=== PATIENT | male | born 1960 | race Caucasian/White ===

== ENCOUNTER 2017-02-16 18:24 | Observation (INO) | payer MEDICARE ==
[2017-02-16 18:28] VITALS: BP 146/73; PULSE 103; RESP 18; TEMP 98.3; O2SAT 99
--- NOTE | 2017-02-16 19:05 | PD ---
HPI Chief Complaint: Edema Time Seen by Provider: 19:00 Travel History International Travel<30 days: No Contact w/Intl Traveler<30days: No Traveled to known affect area: No History of Present Illness HPI 56-year-old male that presents to the ED via ambulance for evaluation of lower leg edema bilaterally. Right worse than left. No injuries. Per patient she's had this for almost a month now. [place] the area. He states that the right leg continues to get red and swollen. He does have a history of DVT to the leg which require surgery. He also has a history multiple surgeries to the leg as well. States that he has epigastric abdominal pain as well. Per patient for the past week his been having black stools. He denies any chest pain or shortness of breath and a history of heart disease. He does have a history of CHF per patient. Per patient he states there eyes but has not used them in a while as he has no healthcare in the area. No nausea or vomiting. No falls or injuries. Allergies to Benadryl, penicillin, vancomycin. Per patient the pain is 5 out of 10. PFSH Past Medical History Cardiovascular Problems: Yes Congestive Heart Failure: Yes Diabetes: Yes Patient Takes Glucophage: No Deep Vein Thrombosis: Yes GERD: Yes Hypertension: Yes Past Surgical History Abdominal Surgery: Yes Other Surgery: Yes (VASCULAR SX TO R LEG) Social History Alcohol Use: No (DENIES) Tobacco Use: No Substance Use: No (DENIES) Allergies-Medications (Allergen,Severity, Reaction): Coded Allergies: Benadryl (Verified Allergy, Unknown, 02/16/17) Penicillin (Verified Allergy, Unknown, 02/16/17) Vancomycin (Verified Allergy, Unknown, 02/16/17) Reported Meds & Prescriptions Reported Meds & Active Scripts Active Reported Ibuprofen 200 Mg Tab 2,000 Mg PO Q6H PRN Nexium (Esomeprazole DR) 40 Mg Capdr 40 Mg PO BID Review of Systems Except as stated in HPI: all other systems reviewed are Neg Physical Exam Narrative GENERAL: SKIN: Warm and dry. Patient has multiple surgical scars more noted on the right leg as well as on the abdomen. No sign of infection. Right leg does appear to be more edematous compared to the left is slightly tender. HEAD: Atraumatic. Normocephalic. EYES: Pupils equal and round 4 mm right and accommodation. No scleral icterus. No injection or drainage. ENT: No nasal bleeding or discharge. Mucous membranes pink and moist. Tongue is midline. No uvula deviation. NECK: Trachea midline. No JVD. CARDIOVASCULAR: Regular rate and rhythm. No murmurs, S3, S4. RESPIRATORY: No accessory muscle use. Clear to auscultation. Breath sounds equal bilaterally. GASTROINTESTINAL: Abdomen soft, non-tender, nondistended. Hepatic and splenic margins not palpable. MUSCULOSKELETAL: Extremities without clubbing, cyanosis, or edema. No obvious deformities. Full range of motion of the upper and lower extremities bilaterally. 2+ pulses bilaterally. No lumbar, thoracic, cervical spine tenderness to palpation. There are 2+ pitting edema on bilateral legs but right worse than left NEUROLOGICAL: Awake and alert. No obvious cranial nerve deficits. Motor grossly within normal limits. Five out of 5 muscle strength in the arms and legs. Normal speech. PSYCHIATRIC: Appropriate mood and affect; insight and judgment normal. Data Data Last Documented VS Vital Signs Date Time Temp Pulse Resp B/P Pulse Ox O2 Delivery O2 Flow Rate FiO2 02/16/17 18:53 Room Air 02/16/17 18:28 98.3 103 18 146/73 99 Orders Electrocardiogram (02/16/17 18:38) Complete Blood Count With Diff (02/16/17 18:38) Comprehensive Metabolic Panel (02/16/17 18:38) Troponin I (02/16/17 18:38) B-Type Natriuretic Peptide (02/16/17 18:38) Prothrombin Time / Inr (Pt) (02/16/17 18:38) Act Partial Throm Time (Ptt) (02/16/17 18:38) Lipase (02/16/17 18:38) Urinalysis - C+S If Indicated (02/16/17 18:38) Magnesium (Mg) (02/16/17 18:38) Chest, Single Ap (02/16/17 18:38) Iv Access Insert/Monitor (02/16/17 18:38) Ecg Monitoring (02/16/17 18:38) Oximetry (02/16/17 18:38) Us Leg Venous Doppler (02/16/17 ) Morphine Inj (Morphine Inj) (02/16/17 19:45) Ondansetron Inj (Zofran Inj) (02/16/17 19:45) Ankle, Complete ([id number]) (02/16/17 ) Clindamycin Inj (Cleocin Inj) (02/16/17 20:00) Sodium Chlor 0.9% 1000 Ml Inj (Ns 1000 M (02/16/17 19:52) Ketorolac Inj (Toradol Inj) (02/16/17 20:00) Admit Order (Ed Use Only) (02/16/17 20:17) Labs Laboratory Tests Test 02/16/17 18:35 White Blood Count 3.8 TH/MM3 Red Blood Count 3.41 MIL/MM3 Hemoglobin 10.0 GM/DL Hematocrit 30.0 % Mean Corpuscular Volume 87.9 FL Mean Corpuscular Hemoglobin 29.3 PG Mean Corpuscular Hemoglobin 33.3 % Concent Red Cell Distribution Width 16.7 % Platelet Count 72 TH/MM3 Mean Platelet Volume 10.0 FL Neutrophils (%) (Auto) 72.2 % Lymphocytes (%) (Auto) 15.5 % Monocytes (%) (Auto) 10.7 % Eosinophils (%) (Auto) 1.1 % Basophils (%) (Auto) 0.5 % Neutrophils # (Auto) 2.8 TH/MM3 Lymphocytes # (Auto) 0.6 TH/MM3 Monocytes # (Auto) 0.4 TH/MM3 Eosinophils # (Auto) 0.0 TH/MM3 Basophils # (Auto) 0.0 TH/MM3 CBC Comment AUTO DIFF Differential Comment AUTO DIFF CONFIRMED Platelet Estimate LOW Platelet Morphology Comment NORMAL Prothrombin Time 10.8 SEC Prothromb Time International 1.0 RATIO Ratio Activated Partial 25.3 SEC Thromboplast Time Sodium Level 139 MEQ/L Potassium Level 4.2 MEQ/L Chloride Level 113 MEQ/L Carbon Dioxide Level 16.5 MEQ/L Anion Gap 10 MEQ/L Blood Urea Nitrogen 26 MG/DL Creatinine 1.04 MG/DL Estimat Glomerular Filtration 74 ML/MIN Rate Random Glucose 177 MG/DL Calcium Level 8.6 MG/DL Magnesium Level 1.9 MG/DL Total Bilirubin 0.4 MG/DL Aspartate Amino Transf 44 U/L (AST/SGOT) Alanine Aminotransferase 35 U/L (ALT/SGPT) Alkaline Phosphatase 204 U/L Troponin I LESS THAN 0.02 NG/ML B-Type Natriuretic Peptide 64 PG/ML Total Protein 7.1 GM/DL Albumin 3.1 GM/DL Lipase 655 U/L MDM Medical Decision Making Medical Screen Exam Complete: Yes Emergency Medical Condition: Yes Medical Record Reviewed: Yes Interpretation(s) CBC & BMP Diagram 02/16/17 18:35 Last Impressions Chest X-Ray 02/16/17 1838 Signed Impressions: Service Date/Time: February 18:39 - CONCLUSION: No acute disease. Dhruv Cano MD FACR Lower Extremity Ultrasound 02/16/17 0000 Signed Impressions: Service Date/Time: February 19:01 - CONCLUSION: Limited but negative exam. Dhruv Cano MD FACR LFTS WNL Lipase slightly elevated in the 600s troponin negative CK slightly elevated BNP negative Differential Diagnosis DVT versus CHF versus cellulitis versus epigastric pain versus GI bleed Narrative Course 56-year-old male that presents to the ED for evaluation of lower leg edema as well as black stools. Patient was properly examined and was found to have signs and symptoms of unclear etiology. Concern for DVT as well as CHF. Patient was told that he will benefit from rectal exam to make sure patient doesn't have blood on his stool secondary to the black stools but he declines. He understands that without this test I'm not able to really see if he is bleeding internally. I did ask and multiple times that he needs to give us a sample of his stool and we do not have to do this test. He agrees with this. Labs and imaging ordered. Labs and imaging for almost per were unremarkable other than for dehydration as well as mild pancreatitis. No sign of ischemia. Case was discussed in my attending Dr. Espinosa who evaluated the patient and agrees with plan. At this time patient appears to have cellulitis to his right leg. Unclear etiology. Recommendation this time is for admission. Patient has not been able to give us a sample of his stool. Patient's hemoglobin was slightly low. Patient was told that he needs a rectal exam but declines. Patient will be admitted for eval of cellulitis and recheck of H/H. Case discussed with Dr Cuello who agrees to admission. Diagnosis Primary Impression: Cellulitis Qualified Code: L03.115 - Cellulitis of right lower extremity Additional Impressions: Dehydration GI bleed Qualified Code: K92.2 - Gastrointestinal hemorrhage, unspecified gastrointestinal hemorrhage type Admitting Information Admitting Physician Requests: Guillermo Brut Feb 16, 2017 19:05
--- NOTE | 2017-02-16 19:05 | RADRPT ---
EXAM DATE/TIME: 02/16/2017 18:39 [facility] COMPARISON: No previous studies available for comparison. INDICATIONS : Short of breath, bilateral lower leg swelling. MEDICAL HISTORY : Congestive heart failure. Hypertension Diabetes mellitus type II. DVT SURGICAL HISTORY : vascular sx to rt leg, lung surgery for infection ENCOUNTER: Initial ACUITY: 2 days PAIN SCORE: 0/10 LOCATION: Bilateral chest FINDINGS: A single view of the chest demonstrates the lungs to be symmetrically aerated without evidence of mas s, infiltrate or effusion. The cardiomediastinal contours are unremarkable. Osseous structures are intact. CONCLUSION: No acute disease. Dhruv Cano MD FACR on February 16, 2017 at 19:04 Board Certified Radiologist. This report was verified electronically.
[2017-02-16 19:06] LABS: AUTOMATED NEUTROPHIL # 2.8 TH/MM3 (1.8-7.7); BASOPHIL % 0.5 % (0.0-2.0); EOSINOPHIL % 1.1 % (0.0-4.0); LYMPH % 15.5 % (9.0-44.0); LYMPHOCYTE # 0.6 TH/MM3 (1.0-4.8); MEAN CELL VOLUME 87.9 FL (80.0-100.0); MEAN CORPUSCULAR HEMOGLOBIN 29.3 PG (27.0-34.0); MEAN CORPUSCULAR HGB CONC 33.3 % (32.0-36.0); MONO % 10.7 % (0.0-8.0); NEUT % 72.2 % (16.0-70.0); PLATELET COUNT 72 TH/MM3 (150-450); RED BLOOD COUNT 3.41 MIL/MM3 (4.50-5.90); RED CELL DISTRIBUTION WIDTH 16.7 % (11.6-17.2); WHITE BLOOD COUNT 3.8 TH/MM3 (4.0-11.0)
[2017-02-16 19:08] LABS: HEMO FLAGS AUTO DIFF
[2017-02-16] MEDS ORDERED: NEXI40CA PO (19:09)
[2017-02-16] MEDS ORDERED: IBUP200T2 PO (19:09)
[2017-02-16 19:21] LABS: APTT (PATIENT) 25.3 SEC (24.3-30.1); PROTHROMBIN TIME - PATIENT 10.8 SEC (9.8-11.6)
[2017-02-16 19:23] LABS: ALT (GPT) 35 U/L (12-78)
[2017-02-16 19:27] LABS: ALKALINE PHOSPHATASE 204 U/L (45-117); TOTAL BILIRUBIN ADULT 0.4 MG/DL (0.2-1.0)
[2017-02-16 19:31] LABS: ANION GAP 10 MEQ/L (5-15); AST (GOT) 44 U/L (15-37); BICARBONATE 16.5 MEQ/L (21.0-32.0); BLOOD UREA NITROGEN 26 MG/DL (7-18); CHLORIDE 113 MEQ/L (98-107); GLOMERULAR FILTRATION RATE 74 ML/MIN (>89); MAGNESIUM 1.9 MG/DL (1.5-2.5); POTASSIUM 4.2 MEQ/L (3.5-5.1); SODIUM (NA) 139 MEQ/L (136-145)
[2017-02-16] MEDS ORDERED: MORPHINE SULFATE 4 MG/ML INJ IV PUSH ONE (19:45)
[2017-02-16] MEDS ORDERED: ONDANSETRON HCL 4 MG/2 ML VIAL IV PUSH ONE (19:45)
--- NOTE | 2017-02-16 19:47 | RADRPT ---
EXAM DATE/TIME: 02/16/2017 19:01 [facility] COMPARISON: No previous studies available for comparison. INDICATIONS : Right leg pain/swelling. Limited exam of the upper extremities because patient would not be stroke. MEDICAL HISTORY : Congestive heart failure. Hypertension. Gastroesophageal reflux disease. Cardiac disorders. Deep v ein thrombosis. Diabetes. SURGICAL HISTORY : Vascular surgery to right leg. Abdominal surgery, unspecified. ENCOUNTER: Initial ACUITY: 1 month PAIN SCORE: 1/10 LOCATION: Right leg. TECHNIQUE: Venous ultrasound of the leg was performed from the inguinal ligament to the proximal calf. Real-she e, color Doppler and spectral tracing, compression and augmentation techniques were used. FINDINGS: There is normal compressibility of the deep venous system from the inguinal region to the proximal ca lf. No echogenic clot is seen in the lumen of the common femoral, femoral, popliteal, and posterior tibial veins. There is a normal response of the venous system to proximal and distal augmentation an d respiration. CONCLUSION: Limited but negative exam. Dhruv Cano MD FACR on February 16, 2017 at 19:45 Board Certified Radiologist. This report was verified electronically.
[2017-02-16] MEDS ORDERED: SODIUM CHLOR 0.9% 1000 ML INJ 1,000 ML IV SCH (19:52)
[2017-02-16] MEDS ORDERED: CLINDAMYCIN INJ 600 MG in SODIUM CHLORIDE 0.9% INJ 100 ML IV ONE (20:00)
[2017-02-16] MEDS ORDERED: KETOROLAC TROMETHAMINE 30 MG/ML (IVP) VIAL IV PUSH ONE (20:00)
--- NOTE | 2017-02-16 20:08 | RADRPT ---
EXAM DATE/TIME: 02/16/2017 19:41 [facility] COMPARISON: No previous studies available for comparison. INDICATIONS : Edema in right ankle. MEDICAL HISTORY : None. SURGICAL HISTORY : None. ENCOUNTER: Initial ACUITY: 4 - 6 days PAIN SCORE: 6/10 LOCATION: Right whole ankle FINDINGS: There is generalized soft tissue swelling without fracture.. Minimal plantar spurring is evident. CONCLUSION: Soft tissue swelling without fracture. Dhruv Cano MD FACR on February 16, 2017 at 20:07 Board Certified Radiologist. This report was verified electronically.
[2017-02-16 20:19] LABS: PLATELET ESTIMATE SMEAR LOW (NORMAL); PLATELET MORPHOLOGY NORMAL (NORMAL); SCAN/DIFF AUTO DIFF CONFIRMED
[2017-02-16] MEDS ORDERED: SODIUM CHLORIDE 0.9% FLUSH 10 ML FLUSH IV FLUSH PRN (20:30)
[2017-02-16] MEDS ORDERED: NALOXONE HCL 0.4 MG/ML AMP IV PRN (20:30)
[2017-02-16] MEDS: SODIUM CHLORIDE 0.9% FLUSH 10 ML FLUSH IV FLUSH SCH (21:05)
[2017-02-16 21:30] VITALS: BP 159/78
[2017-02-16 21:55] VITALS: BP 132/65; PULSE 80; RESP 16; TEMP 97.7; O2SAT 98
[2017-02-16 21:56] LABS: BLOOD, URINE NEG (NEG); GLUCOSE,URINE NEG (NEG); KETONE, URINE NEG (NEG); NITRITE,URINE NEG (NEG); PH, URINE 6.5 (5.0-8.5); URINE COLOR YELLOW (YELLW/STRAW)
[2017-02-16 22:05] LABS: COMMENT (UR) CULT NOT INDICATED; CULTURE IF INDICATED CULT NOT INDICATED
[2017-02-16 23:13] VITALS: BP 136/76; PULSE 77; RESP 17; TEMP 98.3; O2SAT 99
[2017-02-17] MEDS: CLINDAMYCIN INJ 900 MG in SODIUM CHLORIDE 0.9% INJ 100 ML IV SCH ×4 (03:32→23:24)
[2017-02-17 03:40] VITALS: BP 163/84; PULSE 86; RESP 18; TEMP 97.8; O2SAT 98
[2017-02-17 06:33] LABS: AUTOMATED NEUTROPHIL # 1.9 TH/MM3 (1.8-7.7); BASOPHIL % 0.6 % (0.0-2.0); EOSINOPHIL # 0.1 TH/MM3 (0-0.4); EOSINOPHIL % 2.6 % (0.0-4.0); HEMATOCRIT 29.9 % (39.0-51.0); LYMPH % 22.2 % (9.0-44.0); LYMPHOCYTE # 0.7 TH/MM3 (1.0-4.8); MEAN CELL VOLUME 87.3 FL (80.0-100.0); MEAN CORPUSCULAR HEMOGLOBIN 29.8 PG (27.0-34.0); MEAN CORPUSCULAR HGB CONC 34.1 % (32.0-36.0); MONO % 10.8 % (0.0-8.0); NEUT % 63.8 % (16.0-70.0); PLATELET COUNT 67 TH/MM3 (150-450); RED BLOOD COUNT 3.42 MIL/MM3 (4.50-5.90); RED CELL DISTRIBUTION WIDTH 16.2 % (11.6-17.2)
[2017-02-17 06:34] LABS: HEMO FLAGS DIFF FINAL
[2017-02-17 06:57] LABS: BICARBONATE 19.5 MEQ/L (21.0-32.0); POTASSIUM 3.8 MEQ/L (3.5-5.1)
[2017-02-17 07:37] VITALS: BP 129/63; PULSE 76; RESP 18; TEMP 97.7; O2SAT 97
[2017-02-17] MEDS: SODIUM CHLORIDE 0.9% FLUSH 10 ML FLUSH IV FLUSH SCH ×2 (10:19→23:23)
[2017-02-17 12:30] VITALS: BP 134/75; PULSE 80; RESP 16; TEMP 98; O2SAT 98
[2017-02-17] MEDS ORDERED: DEXTROSE 50% IN WATER 50 ML VIAL(D50) IV PRN (14:15)
[2017-02-17] MEDS ORDERED: ACETAMINOPHEN 500 MG CPLT PO PRN (14:15)
[2017-02-17] MEDS ORDERED: GLUCAGON 1 MG/ML VIAL OTHER PRN (14:15)
--- NOTE | 2017-02-17 14:19 | HHI.HP ---
[facility] No Primary Care Physician Admission Diagnosis right leg cellulitis, dehydration Diagnoses: Chief Complaint: Right lower extremity swelling Travel History International Travel<30 Days: No Contact w/Intl Traveler <30 Da: No Traveled to Known Affected Are: No History of Present Illness Written by Charles Price, acting as scribe for Dr. Alba on 02/17/17 at 13:12. 56-year-old male with a past medical history of GERD, DM with neuropathy, HTN, CHF who presented for bilateral lower extremity swelling and right leg redness. Patient states he's been having swelling of his legs for the past 4 days. The right leg is more swollen than the left and more red. The patient has burning pain in his thirst remedies, but attributes this to diabetic neuropathy. He spent out of his insulin for the past 4 days. He is also had associated nausea and vomiting for the past 4 days. He states that normally when he is swelling of his legs, he is able to remedy the swelling with elevating his legs, but that did not help this time. He said shortness of breath since he moved to [place] 8 months ago, unchanged. He denies any fevers , chills, diarrhea, chest pain. He did have an admission about 3 months ago for MRSA infection of his right leg that required surgery. He did have a postoperative hematoma in his right groin, denies any blood clots and was never placed on blood thinners. Review of Systems Except as stated in HPI: all other systems reviewed are Neg Past Family Social History Past Medical History GERD Diabetes mellitus with neuropathy Hypertension, has been out of lisinopril for several months Reported history of CHF, denies ever being on diuretics chronically Past Surgical History Right leg surgery for infection 3 months ago Left wrist laceration repair Stomach surgery (Melissa fundoplication?) Lung surgery for infection Reported Medications Reported Ibuprofen 200 Mg Tab 2,000 Mg PO Q6H PRN Nexium (Esomeprazole DR) 40 Mg Capdr 40 Mg PO BID Patient also reports that he was on Humalog 11 units 3 times a day with meals and Levemir 25 units twice daily until he ran out 4 days ago Allergies: Coded Allergies: Penicillin (Verified Allergy, Severe, 02/17/17) ANAPHYLACTIC REACTION Benadryl (Verified Allergy, Unknown, 02/16/17) Vancomycin (Verified Allergy, Unknown, 02/16/17) Active Ordered Medications Current Medications Medications (Trade) Dose Ordered Sig/Ruthy Route Start Time Stop Time Status Last Admin (NS Flush) 2 ml UNSCH PRN IV FLUSH 02/16/17 20:30 02/17/17 03:31 (NS Flush) 2 ml BID IV FLUSH 02/16/17 21:00 02/17/17 10:19 Naloxone HCl 0.4 mg 0.4 mg UNSCH PRN IV 02/16/17 20:30 Clindamycin Phosphate 900 mg/ Sodium Chloride 106 ml @ 212 mls/hr Q6H IV 02/17/17 03:00 02/17/17 10:19 (Zosyn 3.375 Gm Premix) 50 ml @ 100 mls/hr Q6H IV 02/17/17 14:15 UNV (Lasix) 20 mg BID@09,18 PO 02/17/17 14:15 UNV (D50w (Vial) Inj) 50 ml UNSCH PRN IV 02/17/17 14:15 UNV (Glucagon Inj) 1 mg UNSCH PRN OTHER 02/17/17 14:15 UNV (Tylenol) 1,000 mg Q6H PRN PO 02/17/17 14:15 UNV Family History Father was an alcoholic and of a heart attack at age 88 Mother is alive in a fdc, had heart bypass in her 50s Social History Denies any alcohol, tobacco, or drug use Currently living with friends Physical Exam Vital Signs Vital Signs Date Time Temp Pulse Resp B/P Pulse Ox O2 Delivery O2 Flow Rate FiO2 02/17/17 12:30 98.0 80 16 134/75 98 02/17/17 07:37 97.7 76 18 129/63 97 02/17/17 03:40 97.8 86 18 163/84 98 02/16/17 23:13 98.3 77 17 136/76 99 02/16/17 21:55 97.7 80 16 132/65 98 02/16/17 21:30 78 14 159/78 97 02/16/17 18:53 Room Air 02/16/17 18:28 98.3 103 18 146/73 99 Physical Exam GENERAL: Well-developed well-nourished. In no acute distress. SKIN: Warm and dry. Mild erythema of the right anterior shaikh. Well-healed surgical incisions on the right thigh and groin. HEENT: Normocephalic. Pupils equal and round. Mucous membranes pink and moist. CARDIOVASCULAR: Regular rate and rhythm. No murmur appreciated. RESPIRATORY: No accessory muscle use. Clear to auscultation. Breath sounds equal bilaterally. GASTROINTESTINAL: Abdomen soft, non-tender, nondistended. Bowel sounds x4. MUSCULOSKELETAL: Right lower extremity edema 2+, left lower showing edema 1+. DP pulses 2+ bilaterally. No clubbing or cyanosis. NEUROLOGICAL: Awake and alert. No focal neurological deficits. Moves upper and lower extremities spontaneously. Normal speech. PSYCHIATRIC: Appropriate mood and affect; insight and judgment normal. Laboratory Laboratory Tests Test 02/16/17 02/16/17 02/17/17 02/17/17 18:35 21:37 06:05 06:15 White Blood Count 3.8 3.0 Red Blood Count 3.41 3.42 Hemoglobin 10.0 10.2 Hematocrit 30.0 29.9 Mean Corpuscular Volume 87.9 87.3 Mean Corpuscular Hemoglobin 29.3 29.8 Mean Corpuscular Hemoglobin 33.3 34.1 Concent Red Cell Distribution Width 16.7 16.2 Platelet Count 72 67 Mean Platelet Volume 10.0 9.9 Neutrophils (%) (Auto) 72.2 63.8 Lymphocytes (%) (Auto) 15.5 22.2 Monocytes (%) (Auto) 10.7 10.8 Eosinophils (%) (Auto) 1.1 2.6 Basophils (%) (Auto) 0.5 0.6 Neutrophils # (Auto) 2.8 1.9 Lymphocytes # (Auto) 0.6 0.7 Monocytes # (Auto) 0.4 0.3 Eosinophils # (Auto) 0.0 0.1 Basophils # (Auto) 0.0 0.0 CBC Comment AUTO DIFF DIFF FINAL Differential Comment AUTO DIFF CONFIRMED Platelet Estimate LOW Platelet Morphology Comment NORMAL Prothrombin Time 10.8 Prothromb Time International 1.0 Ratio Activated Partial 25.3 Thromboplast Time Sodium Level 139 143 Potassium Level 4.2 3.8 Chloride Level 113 113 Carbon Dioxide Level 16.5 19.5 Anion Gap 10 11 Blood Urea Nitrogen 26 22 Creatinine 1.04 0.97 Estimat Glomerular Filtration 74 80 Rate Random Glucose 177 122 Calcium Level 8.6 8.2 Magnesium Level 1.9 Total Bilirubin 0.4 Aspartate Amino Transf 44 (AST/SGOT) Alanine Aminotransferase 35 (ALT/SGPT) Alkaline Phosphatase 204 Troponin I LESS THAN 0.02 B-Type Natriuretic Peptide 64 Total Protein 7.1 Albumin 3.1 Lipase 655 Urine Color YELLOW Urine Turbidity CLEAR Urine pH 6.5 Urine Specific [place] 1.018 Urine Protein 30 Urine Glucose (UA) NEG Urine Ketones NEG Urine Occult Blood NEG Urine Nitrite NEG Urine Bilirubin NEG Urine Urobilinogen LESS THAN 2.0 Urine Leukocyte Esterase NEG Urine RBC 1 Urine WBC LESS THAN 1 Microscopic Urinalysis Comment CULT NOT INDICATED Result Diagram: 02/17/1760402/17/17 0615 Imaging Last Impressions Chest X-Ray 02/16/17 1838 Signed Impressions: Service Date/Time: February 18:39 - CONCLUSION: No acute disease. Dhruv Cano MD FACR Lower Extremity Ultrasound 02/16/17 0000 Signed Impressions: Service Date/Time: , February 16, 2017 19:01 - CONCLUSION: Limited but negative exam. Dhruv Cano MD FACR Ankle X-Ray 02/16/17 0000 Signed Impressions: Service Date/Time: , February 16, 2017 19:41 - CONCLUSION: Soft tissue swelling without fracture. Dhruv Cano MD FACR Assessment and Plan Assessment and Plan 56-year-old male with a past medical history of GERD, DM with neuropathy, HTN, CHF who presented for bilateral lower extremity swelling and right leg redness Right lower extremity cellulitis: Reviewed: Ultrasound negative for DVT. Ankle x-ray with soft tissue swelling. Afebrile with no leukocytosis. -Minimal improvement on IV clindamycin overnight. Add cefepime. -Patient does not want narcotics for pain, avoid NSAIDs with swelling, Tylenol as needed Bilateral lower extremity swelling: Likely secondary to cirrhosis. Reviewed: Liver ultrasound with signs suggestive of cirrhosis. BNP 64. Chest x -ray clear. -Oral Lasix Diabetes mellitus: Not well controlled secondary to noncompliance. -Monitor Accu-Cheks. SSI coverage. -Consider adding back basal insulin -Check hemoglobin A1c GERD: No abdominal pain. -Continue PPI Dark stools: Reported in the ED. -Check stool Hemoccult to rule out GI bleed DVT prophylaxis: Avoid mechanical prophylaxis for now with infection and lower extremity edema. Avoid chemical prophylaxis with questionable GI bleeding. Discussed Condition With Patient Attending Statement This note was transcribed by [email or web address] [Charles Price]. I, Dr. Jarrett Alba personally performed the history, physical exam, and medical decision making; and confirmed the accuracy of the information in the transcribed note. Authenticated by Dr. Jarrett Alba on 02/20/17 at 00:42. Charles Price Feb 17, 2017 14:19 Jarrett Alba MD Feb 20, 2017 00:42
--- NOTE | 2017-02-17 14:24 | EKG ---
Date Performed: 02/16/2017 Time Performed: 19:24:20 PTAGE: 56 years EKG: Sinus rhythm NORMAL ECG NO PREVIOUS TRACING DOCTOR: Jose Alberto Crockett Interpretating Date/Time 02/17/2017 14:23:06
[2017-02-17] MEDS ORDERED: CEFEPIME INJ 2,000 MG in SODIUM CHLORIDE 0.9% INJ 100 ML IV SCH (14:45)
--- NOTE | 2017-02-17 14:46 | RADRPT ---
EXAM DATE/TIME: 02/17/2017 13:24 [facility] COMPARISON: No previous studies available for comparison. INDICATIONS : Increased lab values. MEDICAL HISTORY : Congestive heart failure. Hypertension. Deep venous thrombosis. COPD. GERD. Diabetes. SURGICAL HISTORY : Vascular surgery to right leg. Blood transfusions. ENCOUNTER: Initial ACUITY: 1 day PAIN SCORE: 0/10 LOCATION: Bilateral upper quadrant MEASUREMENTS: LIVER: 20.4 cm length COMMON DUCT: 5 mm RIGHT KIDNEY: 12.1 x 6.8 x 5.7 cm SPLEEN: 14.3 cm length FINDINGS: LIVER: Coarsened echotexture with nodular contour. No focal lesion is identified. Main portal vein is patent with hepatopedal blood flow. COMMON DUCT: No intraluminal mass or stone visualized. GALLBLADDER: Gallbladder is only partially distended. There is mild wall thickening and trace pericholecystic flui d. Sonographic Campos's sign is negative. There are no stones. PANCREAS: The visualized portions are within normal limits. RIGHT KIDNEY: No hydronephrosis, stone or mass. SPLEEN: No focal lesion. CONCLUSION: 1. Mild hepatomegaly with a nodular contour and coarsened echotexture. Findings are suggestive of cir rhosis. 2. Mild splenomegaly. Although nonspecific, this could be related to portal hypertension. 3. The mild gallbladder wall thickening is likely related to underdistention. Hernan Sanches MD on February 17, 2017 at 14:42 Board Certified Radiologist. This report was verified electronically.
[2017-02-17] MEDS ORDERED: PIPERACIL-TAZO 3.375 GM PREMIX 50 ML IV SCH (15:00)
[2017-02-17] MEDS: FUROSEMIDE 20 MG TAB PO SCH ×2 (15:39→18:19)
[2017-02-17] MEDS: INSULIN ASPART SUPPLEMENTAL SCALE SQ SCH ×2 (16:00→21:00)
[2017-02-17] MEDS ORDERED: LEVOFLOXACIN 750 MG PREMIX INJ 150 ML IV SCH (17:00)
[2017-02-17 17:11] LABS: HEMOGLOBIN A1a 1.2 %; HEMOGLOBIN A1b 0.7 %; HEMOGLOBIN Ao 84.4 %; HEMOGLOBIN F 1.1 %; HEMOGLOBIN LA1C 1.8 %; HEMOGLOBIN P3 3.7 %
[2017-02-17 20:06] VITALS: PULSE 83
[2017-02-17 20:16] VITALS: BP 120/63; PULSE 89; RESP 18; TEMP 98.3; O2SAT 98
[2017-02-17 23:44] VITALS: BP 154/70; PULSE 82; RESP 20; TEMP 98; O2SAT 99
[2017-02-18 01:34] VITALS: PULSE 74
[2017-02-18] MEDS: CLINDAMYCIN INJ 900 MG in SODIUM CHLORIDE 0.9% INJ 100 ML IV SCH (03:00)
[2017-02-18 03:55] VITALS: PULSE 69
[2017-02-18 04:00] VITALS: BP 112/56; PULSE 75; RESP 16; TEMP 97.5; O2SAT 99
[2017-02-18] MEDS ORDERED: HUMALOG SQ ×2 (04:15→09:31)
[2017-02-18] MEDS ORDERED: hydrOXYzine HCL 50 MG TAB PO ONE (04:30)
[2017-02-18] MEDS: INSULIN ASPART SUPPLEMENTAL SCALE SQ SCH (06:06)
[2017-02-18] MEDS ORDERED: LYRICA (07:10)
[2017-02-18] MEDS ORDERED: LIS (07:10)
[2017-02-18] MEDS ORDERED: [UNRECOGNIZED DRUG - OTHER] (07:10)
[2017-02-18] MEDS ORDERED: LISIPOW (07:12)
[2017-02-18] MEDS ORDERED: LEVEMIR (07:12)
[2017-02-18 08:48] VITALS: BP 132/68; PULSE 73; RESP 18; TEMP 96.8; O2SAT 98
--- NOTE | 2017-02-18 09:27 | HHI.PR ---
Subjective Remarks Follow-up for lower extremity cellulitis. Right leg erythema has improved today. The patient continues to complain of burning pain in his lower extremities. States he was previously on Lyrica for neuropathy and is happy to have that restarted. He states that after receiving clindamycin last night around midnight he did have some itching that was relieved by hydroxyzine. He denies any problems breathing or rash. Denies any fevers or chills. He does not recall what he was on previously for MRSA. Objective Vitals Vital Signs Date Time Temp Pulse Resp B/P Pulse Ox O2 Delivery O2 Flow Rate FiO2 02/18/17 08:48 96.8 73 18 132/68 98 02/18/17 04:00 97.5 75 16 112/56 99 02/18/17 03:55 69 02/18/17 01:34 74 02/17/17 23:44 98.0 82 20 154/70 99 02/17/17 20:16 98.3 89 18 120/63 98 02/17/17 20:06 83 02/17/17 12:30 98.0 80 16 134/75 98 Result Diagram: 02/17/17 0605 02/17/17 0615 Imaging Last Impressions Liver Ultrasound 02/17/17 0000 Signed Impressions: Service Date/Time: Friday, February 17, 2017 13:24 - CONCLUSION: 1. Mild hepatomegaly with a nodular contour and coarsened echotexture. Findings are suggestive of cirrhosis. 2. Mild splenomegaly. Although nonspecific, this could be related to portal hypertension. 3. The mild gallbladder wall thickening is likely related to underdistention. Hernan Sanches MD Chest X-Ray 02/16/17 1838 Signed Impressions: Service Date/Time: February 18:39 - CONCLUSION: No acute disease. Dhruv Cano MD FACR Lower Extremity Ultrasound 02/16/17 0000 Signed Impressions: Service Date/Time: February 19:01 - CONCLUSION: Limited but negative exam. Dhruv Cano MD FACR Ankle X-Ray 02/16/17 0000 Signed Impressions: Service Date/Time: February 19:41 - CONCLUSION: Soft tissue swelling without fracture. Dhruv Cano MD FACR Objective Remarks GENERAL: Well-developed well-nourished. In no acute distress. SKIN: Warm and dry. Improvement/resolution in right lower extremity erythema. Well-healed surgical incisions on the right thigh and groin. HEENT: Normocephalic. Pupils equal and round. Mucous membranes pink and moist. CARDIOVASCULAR: Regular rate and rhythm. No murmur appreciated. RESPIRATORY: No accessory muscle use. Clear to auscultation. Breath sounds equal bilaterally. GASTROINTESTINAL: Abdomen soft, non-tender, nondistended. Bowel sounds x4. MUSCULOSKELETAL: Improvement of right lower extremity cellulitis. No clubbing or cyanosis. 1+ on the right and trace on the left lower extremity edema. NEUROLOGICAL: Awake and alert. No focal neurological deficits. Moves upper and lower extremities spontaneously. Normal speech. PSYCHIATRIC: Appropriate mood and affect; insight and judgment normal. A/P Assessment and Plan 56-year-old male with a past medical history of GERD, DM with neuropathy, HTN, CHF who presented for bilateral lower extremity swelling and right leg redness Right lower extremity cellulitis: Improved on IV clindamycin and IV Levaquin. The patient states that clindamycin causes itching, no respiratory complaints. The patient reports anaphylactic reaction to penicillin in the past. Reviewed: Ultrasound negative for DVT. Ankle x-ray with soft tissue swelling. Afebrile with no leukocytosis. -Change clindamycin to Bactrim. Continue Levaquin. Hydroxyzine prn for itching. -Patient does not want narcotics for pain, avoid NSAIDs with swelling, Tylenol as needed Bilateral lower extremity swelling: Likely secondary to cirrhosis. Reviewed: Liver ultrasound with signs suggestive of cirrhosis. BNP 64. Chest x -ray clear. -Limited course of oral Lasix Diabetes mellitus: Not well controlled secondary to noncompliance. Better controlled overnight. Hemoglobin A1c 6.9. -Monitor Accu-Cheks. SSI coverage. -Resume previous insulin regimen at [place] Lower extremity neuropathy: Patient reports a chronic history of diabetic neuropathy, has been off Lyrica for several months. -Resume Lyrica GERD: No abdominal pain. -Continue PPI Dark stools: Reported in the ED. -Checked stool Hemoccult, negative DVT prophylaxis: Avoid mechanical prophylaxis for now with infection and lower extremity edema. Discharge Planning Follow-up labs today. If patient tolerates Bactrim, discharge on oral antibiotics. 1030 refused labs. Tolerated Bactrim. Discharge home today. Charles Price Feb 18, 2017 09:27
[2017-02-18] MEDS ORDERED: hydrOXYzine HCL 25 MG TAB PO PRN (09:30)
[2017-02-18] MEDS ORDERED: SULF1TAB23 PO (09:31)
[2017-02-18] MEDS ORDERED: LEVO750T3 PO (09:31)
[2017-02-18] MEDS ORDERED: PREG25 PO (09:31)
[2017-02-18] MEDS ORDERED: LEVEMIR SQ (09:31)
[2017-02-18] MEDS ORDERED: FURO20TA PO (09:31)
[2017-02-18] MEDS ORDERED: HYDR-3133 PO (09:31)
[2017-02-18] MEDS ORDERED: ACET500T13 PO (09:31)
[2017-02-18] MEDS ORDERED: SULFAMETHOXAZOLE-TRIMETHOPRIM DS 800-160 MG TAB PO SCH (10:00)
[2017-02-18] MEDS ORDERED: PREGABALIN 25 MG CAP PO SCH (10:00)
[2017-02-18] MEDS: SODIUM CHLORIDE 0.9% FLUSH 10 ML FLUSH IV FLUSH SCH (10:10)
[2017-02-18] MEDS: FUROSEMIDE 20 MG TAB PO SCH (10:10)
[2017-02-18] MEDS ORDERED: INSU1MIS (11:31)
== END 2017-02-18 12:03 | disposition home or self-care (01) ==
LOC: NEPE 18:24 → NEDH 20:19 → NEPGCP 21:43
PROVIDERS: ADMIT Internal Medicine; ATTEND Internal Medicine
DX: L03.115 Cellulitis of right lower limb (principal); M79.89 Other specified soft tissue disorders; R19.5 Other fecal abnormalities; E86.0 Dehydration; R06.02 Shortness of breath; I11.0 Hypertensive heart disease with heart failure; I50.9 Heart failure, unspecified; E11.65 Type 2 diabetes mellitus with hyperglycemia; E11.40 Type 2 diabetes mellitus with diabetic neuropathy, unspecified; J44.9 Chronic obstructive pulmonary disease, unspecified; K21.9 Gastro-esophageal reflux disease without esophagitis; R16.0 Hepatomegaly, not elsewhere classified; R16.1 Splenomegaly, not elsewhere classified; K85.90 Acute pancreatitis without necrosis or infection, unspecified; K92.2 Gastrointestinal hemorrhage, unspecified; Z91.19 Patient's noncompliance with other medical treatment and regimen; Z86.718 Personal history of other venous thrombosis and embolism; Z86.14 Personal history of Methicillin resistant Staphylococcus aureus infection
CPT/HCPCS: 71010; 73610; 76705; 76937; 80048; 80053; 81001; 82272; 82948; 83036; 83690; 83735; 83880; 84484; 85025; 85610; 85730; 93005; 93971; 96365; 96366; 96375; 96376; 99285; G0378; J1885; J1956; J7030

== ENCOUNTER 2017-07-12 02:55 | Observation (INO) | payer MEDICARE ==
[2017-07-12] VITALS (11 sets, daily range): BP systolic 148–188; BP diastolic 83–96; PULSE 77–102; RESP 15–20; TEMP 97.2–98.6; O2SAT 98–100
[~2017-07-12] VITALS: Ht 175.3 cm; Wt 109.0 kg
[~2017-07-12 02:55] MED LIST: ACET500T13 PO; FURO20TA PO; HUMALOG SQ; HYDR-3133 PO; INSU1MIS; LEVEMIR SQ; LEVO750T3 PO; NEXI40CA PO; PREG25 PO; SULF1TAB23 PO
[2017-07-12] MEDS ORDERED: SODIUM CHLOR 0.9% 1000 ML INJ 1,000 ML IV ONE ×2 (03:13→03:43)
[2017-07-12] MEDS ORDERED: SODIUM CHLORIDE 0.9% FLUSH 10 ML FLUSH IVF PRN (03:15)
[2017-07-12] MEDS ORDERED: MORPHINE SULFATE 2 MG/ML INJ IV PUSH ONE (03:15)
[2017-07-12] MEDS ORDERED: PANTOPRAZOLE SODIUM 40 MG VIAL IVP ONE (03:15)
--- NOTE | 2017-07-12 03:18 | PD ---
HPI Chief Complaint: Abdominal Pain Time Seen by Provider: 03:13 Travel History International Travel<30 days: No Contact w/Intl Traveler<30days: No Traveled to known affect area: No History of Present Illness HPI 57-year-old male with history of insulin-dependent diabetes brought in by EMS from home for evaluation of epigastric abdominal pain, nausea, and vomiting. Symptoms have been going on for about 5 days with 3-4 episodes of vomiting daily. Patient noted some blood-streaked emesis as well as coffee-ground emesis today. He has a large scar in his abdomen and reports history of Melissa fundoplication as well as other surgeries that he cannot recall at this time. Last bowel movement was yesterday. He denies fevers. Epigastric abdominal pain is described as sharp/burning, 7 out of 10, nonradiating. He denies chest pain or dyspnea. He has not taken his insulin in about 5 days because he states his landlord to get out of the refrigerator and ruined it. Denies history of cardiac disease. PFSH Past Medical History Asthma: No Blood Disorders: No Heart Rhythm Problems: No Cancer: No Cardiovascular Problems: Yes High Cholesterol: No Chemotherapy: No Chest Pain: No Congestive Heart Failure: Yes COPD: Yes Diabetes: Yes Deep Vein Thrombosis: Yes Endocrine: Yes GERD: Yes Genitourinary: No Hypertension: Yes Musculoskeletal: No Neurologic: No Psychiatric: No Respiratory: Yes Radiation Therapy: No Sleep Apnea: No Thyroid Disease: No Past Surgical History Abdominal Surgery: Yes Other Surgery: Yes (VASCULAR SX TO R LEG) Social History Alcohol Use: No (DENIES) Tobacco Use: No Substance Use: No Allergies-Medications (Allergen,Severity, Reaction): Coded Allergies: penicillin G (Verified Allergy, Severe, 07/12/17) ANAPHYLACTIC REACTION diphenhydramine (Verified Allergy, Unknown, 07/12/17) vancomycin (Verified Allergy, Unknown, 07/12/17) Reported Meds & Prescriptions Reported Meds & Active Scripts Active APAP Extra Strength (Acetaminophen) 500 Mg Tab 1,000 Mg PO Q6H PRN Furosemide 20 Mg Tab 20 Mg PO DAILY Levemir Inj (Insulin Detemir) 1,000 unit/ 10 ML Vial 10 Units SQ HS 30 Days Do not mix with any other Insulin. Humalog Inj (Insulin Human Lispro) 1,000 Unit/10 Ml Vial 2-12 Units SQ ACHS 30 Days Max dose at bedtime:( )units; sugars < 70,(0)units; sugars 150-199,(2)units; sugars 200-249,(4)units; sugars 250-299,(7)units; sugars 300-349,(10)units; sugars more than 349,(12)units. Reported Nexium (Esomeprazole DR) 40 Mg Capdr 40 Mg PO BID Review of Systems Except as stated in HPI: all other systems reviewed are Neg Physical Exam Narrative GENERAL: Well-developed, well-nourished, overweight, no apparent distress. SKIN: Focused skin assessment warm/dry. HEAD: Atraumatic. Normocephalic. EYES: Pupils equal and round. No scleral icterus. No injection or drainage. ENT: Mucous membranes pink and moist. NECK: Trachea midline. No JVD. CARDIOVASCULAR: Regular rate and rhythm. No murmur appreciated. RESPIRATORY: No accessory muscle use. Clear to auscultation. Breath sounds equal bilaterally. GASTROINTESTINAL: Abdomen soft, nondistended. Moderate epigastric tenderness without peritoneal signs. Normal bowel sounds. Large midline surgical scar that is well-healed. MUSCULOSKELETAL: No obvious deformities. No clubbing. No cyanosis. No edema. NEUROLOGICAL: Awake and alert. No obvious cranial nerve deficits. Motor grossly within normal limits. Normal speech. PSYCHIATRIC: Appropriate mood and affect; insight and judgment normal. Data Data Last Documented VS Vital Signs Date Time Temp Pulse Resp B/P (MAP) Pulse Ox O2 Delivery O2 Flow Rate FiO2 07/12/17 06:14 100 20 188/96 (126) 98 Room Air 07/12/17 03:10 98.6 Orders Orders Electrocardiogram (07/12/17 03:13) Complete Blood Count With Diff (07/12/17 03:13) Comprehensive Metabolic Panel (07/12/17 03:13) Beta Hydroxybutyrate (Acetone) (07/12/17 03:13) Lactic Acid (07/12/17 03:13) Urinalysis - C+S If Indicated (07/12/17 03:13) Chest, Single Ap (07/12/17 03:13) Blood Gas Venous (Vbg) (07/12/17 03:13) Ecg Monitoring (07/12/17 03:13) Iv Access Insert/Monitor (07/12/17 03:13) Oximetry (07/12/17 03:13) NPO (07/12/17 03:13) Sodium Chlor 0.9% 1000 Ml Inj (Ns 1000 M (07/12/17 03:13) Sodium Chlor 0.9% 1000 Ml Inj (Ns 1000 M (07/12/17 03:43) Sodium Chloride 0.9% Flush (Ns Flush) (07/12/17 03:15) Troponin I (07/12/17 03:13) Lipase (07/12/17 03:13) Influenzae A/B Antigen (07/12/17 03:13) Pantoprazole Inj (Protonix Inj) (07/12/17 03:15) Morphine Inj (Morphine Inj) (07/12/17 03:15) Prothrombin Time / Inr (Pt) (07/12/17 04:07) Act Partial Throm Time (Ptt) (07/12/17 04:07) Ct Abd/Pel W Iv Contrast(Rout) (07/12/17 04:29) Iohexol 350 Inj (Omnipaque 350 Inj) (07/12/17 05:03) Potassium Chlor 20 Meq Premix (Kcl 20 Me (07/12/17 06:15) Labs Laboratory Tests Test 07/12/17 03:30 07/12/17 03:40 07/12/17 03:41 07/12/17 05:13 Blood Gas Puncture Site R ARM Blood Gas Patient Temperature 98.6 Venous Blood pH 7.36 Venous Blood Partial Pressure CO2 38 mmHg Venous Blood Partial Pressure O2 36 mmHg Venous Blood HCO3 21 mmol/L Venous Blood Oxygen Saturation 52 % Venous Blood Oxygen Content 9.2 Vol % Venous Blood Base Excess -3.6 mmol/L Blood Gas Inspired Oxygen 21 % Blood Urea Nitrogen 8 MG/DL Creatinine 1.10 MG/DL Random Glucose 284 MG/DL Total Protein 7.5 GM/DL Albumin 3.2 GM/DL Calcium Level 8.5 MG/DL Alkaline Phosphatase 120 U/L Aspartate Amino Transf (AST/SGOT) 73 U/L Alanine Aminotransferase (ALT/SGPT) 81 U/L Total Bilirubin 0.8 MG/DL Sodium Level 137 MEQ/L Potassium Level 3.2 MEQ/L Chloride Level 106 MEQ/L Carbon Dioxide Level 20.5 MEQ/L Anion Gap 11 MEQ/L Estimat Glomerular Filtration Rate 69 ML/MIN Lactic Acid Level 2.1 mmol/L Troponin I LESS THAN 0.02 NG/ML Lipase 431 U/L B-Hydroxybutyrate 0.13 MMOL/L White Blood Count 3.3 TH/MM3 Red Blood Count 4.48 MIL/MM3 Hemoglobin 12.2 GM/DL Hematocrit 38.5 % Mean Corpuscular Volume 86.0 FL Mean Corpuscular Hemoglobin 27.2 PG Mean Corpuscular Hemoglobin Concent 31.6 % Red Cell Distribution Width 16.0 % Platelet Count 55 TH/MM3 Mean Platelet Volume 9.3 FL Neutrophils (%) (Auto) 72.3 % Lymphocytes (%) (Auto) 16.0 % Monocytes (%) (Auto) 10.2 % Eosinophils (%) (Auto) 0.9 % Basophils (%) (Auto) 0.6 % Neutrophils # (Auto) 2.5 TH/MM3 Lymphocytes # (Auto) 0.5 TH/MM3 Monocytes # (Auto) 0.3 TH/MM3 Eosinophils # (Auto) 0.0 TH/MM3 Basophils # (Auto) 0.0 TH/MM3 CBC Comment AUTO DIFF Differential Comment AUTO DIFF CONFIRMED Platelet Estimate LOW Platelet Morphology Comment NORMAL Prothrombin Time 11.3 SEC Prothromb Time International Ratio 1.1 RATIO Activated Partial Thromboplast Time 25.7 SEC Urine Color YELLOW Urine Turbidity CLEAR Urine pH 6.0 Urine Specific [place] 1.018 Urine Protein 30 mg/dL Urine Glucose (UA) 500 mg/dL Urine Ketones NEG mg/dL Urine Occult Blood TRACE Urine Nitrite NEG Urine Bilirubin NEG Urine Leukocyte Esterase NEG Urine RBC 0-3 /hpf Urine Squamous Epithelial Cells 0-5 /hpf Microscopic Urinalysis Comment CULT NOT INDICATED MDM Medical Decision Making Medical Screen Exam Complete: Yes Emergency Medical Condition: Yes Interpretation(s) EKG: Sinus, rate 84, normal axis, normal intervals, no acute ischemic abnormality. Differential Diagnosis Gastritis, peptic ulcer disease, pancreatitis, hepatobiliary disease, bowel obstruction, dehydration/metabolic abnormality, DKA, Aishwarya-Grimaldo tears, Boerhaave syndrome less likely Narrative Course Initial vital signs show heart rate 102, blood pressure 165/80, pulse ox 98% on room air, oral temp of 98.6F. CBC: WBC 3.3, hemoglobin 12.2, hematocrit 38.5, platelets 55 CMP is remarkable for potassium 3.2, bicarbonate 20.5, random glucose 284, AST 73, ALT 81, alkaline phosphatase 120, lipase 431. Cardiac enzymes are negative. Lactic acid is 2.1. Venous pH is 7.36. Beta hydroxybutyrate is 0.13. Coags are within normal limits. The patient is not in DKA. Chest x-ray: Mild cardiomegaly. CT abdomen pelvis: CONCLUSION: 1. Cirrhosis. 2. Splenomegaly. 3. No acute abnormality Stool is heme negative and brown. Patient was made aware of all findings. He is still nauseous and is unable to tolerate clear liquids in the emergency department. He reports that his emesis had coffee grounds as well as streaks of blood in it. CT abdomen pelvis shows cirrhosis. The patient reports that he used to drink alcohol several years ago. He may have esophageal varices. This is also likely attributed to his thrombocytopenia. Because of this year. Admitted for further treatment and evaluation. Case discussed with hospitalist nurse practitioner working with Dr Villagomez. The patient will be admitted to the hospitalist service. [facility] Point of Care Internal Pos. & Neg. Controls: Passed Fecal Specimen Occult Blood: Negative Comment Heme-negative brown stool. Diagnosis Primary Impression: Abdominal pain Qualified Codes: R10.9 - Unspecified abdominal pain Additional Impressions: Vomiting Qualified Codes: R11.10 - Vomiting, unspecified Hyperglycemia Thrombocytopenia Hypokalemia Cirrhosis Qualified Codes: K74.69 - Other cirrhosis of liver Kendrick Hatfield MD Jul 12, 2017 03:18
[2017-07-12 03:52] LABS: AUTOMATED NEUTROPHIL # 2.5 TH/MM3 (1.8-7.7); BASOPHIL % 0.6 % (0.0-2.0); EOSINOPHIL % 0.9 % (0.0-4.0); HEMATOCRIT 38.5 % (39.0-51.0); HEMOGLOBIN 12.2 GM/DL (13.0-17.0); LYMPHOCYTE # 0.5 TH/MM3 (1.0-4.8); MEAN CORPUSCULAR HEMOGLOBIN 27.2 PG (27.0-34.0); MEAN CORPUSCULAR HGB CONC 31.6 % (32.0-36.0); MEAN PLATELET VOLUME 9.3 FL (7.0-11.0); MONO % 10.2 % (0.0-8.0); MONOCYTE # 0.3 TH/MM3 (0-0.9); NEUT % 72.3 % (16.0-70.0); PLATELET COUNT 55 TH/MM3 (150-450); RED BLOOD COUNT 4.48 MIL/MM3 (4.50-5.90); WHITE BLOOD COUNT 3.3 TH/MM3 (4.0-11.0)
--- NOTE | 2017-07-12 04:05 | RADRPT ---
EXAM DATE/TIME: 07/12/2017 03:19 [facility] COMPARISON: CHEST SINGLE AP, February 16, 2017, 18:39. INDICATIONS : Chest pain. MEDICAL HISTORY : Hypertension. Congestive heart failure. Diabetes mellitus type II. DVT. SURGICAL HISTORY : vascular sx to rt leg, lung surgery for infection ENCOUNTER: Initial ACUITY: 1 day PAIN SCORE: 7/10 LOCATION: Bilateral chest FINDINGS: A single view of the chest demonstrates the lungs to be symmetrically aerated without evidence of mas s, infiltrate or effusion. Mild cardiomegaly. Osseous structures are intact. CONCLUSION: 1. Mild cardiomegaly. Craig Camilo Jr., MD on July 12, 2017 at 4:03 Board Certified Radiologist. This report was verified electronically.
[2017-07-12 04:09] LABS: CHLORIDE 106 MEQ/L (98-107); SODIUM (NA) 137 MEQ/L (136-145)
[2017-07-12 04:11] LABS: CALCIUM 8.5 MG/DL (8.5-10.1)
[2017-07-12 04:12] LABS: ALBUMIN 3.2 GM/DL (3.4-5.0); BICARBONATE 20.5 MEQ/L (21.0-32.0); BLOOD UREA NITROGEN 8 MG/DL (7-18); GLUCOSE,RANDOM 284 MG/DL (74-106); LIPASE 431 U/L (73-393)
[2017-07-12 04:15] LABS: ALT (GPT) 81 U/L (12-78); AST (GOT) 73 U/L (15-37); GLOMERULAR FILTRATION RATE 69 ML/MIN (>89)
[2017-07-12 04:17] LABS: TOTAL BILIRUBIN ADULT 0.8 MG/DL (0.2-1.0); TOTAL PROTEIN 7.5 GM/DL (6.4-8.2)
[2017-07-12 04:18] LABS: ALKALINE PHOSPHATASE 120 U/L (45-117)
[2017-07-12 04:20] LABS: TROPONIN I LESS THAN 0.02 NG/ML (0.02-0.05)
[2017-07-12 04:27] LABS: INTERNATIONAL NORMALIZED RATIO 1.1 RATIO; PROTHROMBIN TIME - PATIENT 11.3 SEC (9.8-11.6)
[2017-07-12] MEDS ORDERED: IOHEXOL 350 MG/ML 10 ML VIAL (for RAD DIAG) IVCONTRAST ONE (05:03)
--- NOTE | 2017-07-12 06:06 | RADRPT ---
EXAM DATE/TIME: 07/12/2017 04:54 [facility] COMPARISON: No previous studies available for comparison. INDICATIONS : Epigastric pain. Nausea. Vomiting. IV CONTRAST: 100 cc Omnipaque 350 (iohexol) IV ORAL CONTRAST: No oral contrast ingested. RADIATION DOSE: 21.05 CTDIvol (mGy) MEDICAL HISTORY : Cardiovascular disease. Diabetes mellitus type 2. Gastroesophageal reflux disease. SURGICAL HISTORY : None. ENCOUNTER: Initial ACUITY: 4 - 6 days PAIN SCALE: 4/10 LOCATION: Bilateral upper quadrant TECHNIQUE: Volumetric scanning of the abdomen and pelvis was performed. Using automated exposure control and ad justment of the mA and/or kV according to patient size, radiation dose was kept as low as reasonably achievable to obtain optimal diagnostic quality images. DICOM format image data is available electro nically for review and comparison. FINDINGS: LOWER LUNGS: The visualized lower lungs are clear. LIVER: There is lobulation to the contour of the liver. No mass or ductal dilatation. Portal vein is patent. Gallbladder is unremarkable. SPLEEN: Splenomegaly. The spleen measures 16.2 cm in greatest dimension. No splenic lesion observed. Splenic vein is patent. PANCREAS: Within normal limits. KIDNEYS: Normal in size and shape. There is no mass, stone or hydronephrosis. ADRENAL GLANDS: Within normal limits. VASCULAR: There is no aortic aneurysm. BOWEL/MESENTERY: The stomach, small bowel, and colon demonstrate no acute abnormality. There is no free intraperitone al air or fluid. ABDOMINAL WALL: Within normal limits. RETROPERITONEUM: There is no lymphadenopathy. BLADDER: No wall thickening or mass. REPRODUCTIVE: Within normal limits. INGUINAL: There is no lymphadenopathy or hernia. MUSCULOSKELETAL: Within normal limits for patient age. CONCLUSION: 1. Cirrhosis. 2. Splenomegaly. 3. No acute abnormality Craig Camilo Jr., MD on July 12, 2017 at 6:01 Board Certified Radiologist. This report was verified electronically.
[2017-07-12 06:19] LABS: BILIRUBIN, URINE NEG (NEG); BLOOD, URINE TRACE (NEG); GLUCOSE,URINE 500 mg/dL (NEG); KETONE, URINE NEG (NEG); NITRITE,URINE NEG (NEG); URINE LEUKOCYTE ESTERASE NEG (NEG)
[2017-07-12] MEDS: POTASSIUM CHLOR 20 MEQ PREMIX 100 ML IV SCH ×2 (06:21→11:07)
[2017-07-12 06:27] LABS: URINE COLOR YELLOW (YELLW/STRAW)
[2017-07-12 06:29] LABS: RBC, URINE 0-3 /hpf (0-3); SQUAMOUS EPITHELIAL CELL URINE 0-5 /hpf (0-5)
[2017-07-12] MEDS ORDERED: BISACODYL 10 MG SUPP RECTAL PRN (06:45)
[2017-07-12] MEDS ORDERED: SODIUM CHLORIDE 0.9% FLUSH 10 ML FLUSH IV FLUSH PRN (06:45)
[2017-07-12] MEDS ORDERED: NALOXONE HCL 0.4 MG/ML AMP IV PUSH PRN (06:45)
[2017-07-12] MEDS ORDERED: GLUCAGON 1 MG/ML VIAL OTHER PRN (06:45)
[2017-07-12] MEDS ORDERED: ACETAMINOPHEN/HYDROcodone 325 MG/7.5 MG TAB PO PRN (06:45)
[2017-07-12] MEDS ORDERED: MAGNESIUM HYDROXIDE SUSP 30 ML CUP PO PRN (06:45)
[2017-07-12] MEDS ORDERED: ONDANSETRON HCL 4 MG/2 ML VIAL IVP PRN (06:45)
[2017-07-12] MEDS ORDERED: DEXTROSE 50% IN WATER 50 ML VIAL(D50) IV PUSH PRN (06:45)
[2017-07-12] MEDS ORDERED: LACTULOSE SYRUP 20 GM/30 ML CUP PO PRN (06:45)
[2017-07-12] MEDS ORDERED: ACETAMINOPHEN/HYDROcodone 325 MG/5 MG TAB PO PRN (06:45)
[2017-07-12] MEDS ORDERED: SENNOSIDES 8.6 MG TAB PO PRN (06:45)
[2017-07-12] MEDS ORDERED: ACETAMINOPHEN 325 MG TAB PO PRN (06:45)
[2017-07-12] MEDS: MORPHINE SULFATE 2 MG/ML INJ IV PUSH PRN ×3 (06:49→16:20)
[2017-07-12] MEDS: SODIUM CHLOR 0.9% 1000 ML INJ 1,000 ML IV SCH ×2 (07:13→14:38)
[2017-07-12] MEDS: INSULIN ASPART SUPPLEMENTAL SCALE SQ SCH ×3 (07:25→18:16)
[2017-07-12] MEDS ORDERED: SODIUM CHLORIDE 0.9% FLUSH 10 ML FLUSH IV FLUSH SCH (09:00)
[2017-07-12] MEDS ORDERED: PANTOPRAZOLE SODIUM 40 MG VIAL IV PUSH SCH (09:00)
--- NOTE | 2017-07-12 09:24 | PD.CONS ---
HPI History of Present Illness This is a 57 year old M who presented to the emergency department with complaints of hematemesis for the past five days. Pt is a poor historian and the history I received from the patient is significantly different from the emergency room doctors documentation. Pt reports coffee ground emesis with streaks of BRB, multiple episodes, for the past five days. Denies abdominal pain, unintentional weight loss,acid reflux, BRB in stool, constipation, and diarrhea. Pt does report history of GIB secondary to Ibuprofen multiple years ago. He reports last EGD was in [place] three years ago, he states he was found to have esophageal cancer. He states they opened him up to do a procedure to remove the cancer, but didnt end up doing the procedure when they opened him up. He had a repeat PET scan which showed the esophageal cancer was gone. Pt also reports colonoscopy approx 3 years ago, reports normal exam. CT abdomen and Pelvis w IV contrast (07/12) --> Cirrhosis, splenomegaly. No acute abnormality. Labs are consistent with elevated LFTs. Pt denies having even a sip of alcohol in 13 years. He also states he has never been diagnosed with cirrhosis before. Does not follow up with PCP outpatient. Does report history of pancreatitis, multiple recurrences, last one 2 years ago. He is unsure what the pancreatitis was from. Denies smoking, quit 25 years ago. Denies illicit drug use. (Eugenie Pal) PFSH Past Medical History Diabetes Mellitus- insulin dependent GERD HTN CHF Past Surgical History Unable to obtain (Eugenie Pal) Coded Allergies: penicillin G (Verified Allergy, Severe, 07/12/17) ANAPHYLACTIC REACTION diphenhydramine (Verified Allergy, Unknown, 07/12/17) vancomycin (Verified Allergy, Unknown, 07/12/17) Social History Denies ETOH intake for the past 13 years- denies ever being a heavy drinker Denies smoking- quit 25 years ago Denies illicit drug use (Eugenie Pal) Review of Systems Gastrointestinal: COMPLAINS OF: Nausea, Vomiting, Hematemesis, DENIES: Abdominal pain, Black stools, Bloody stools, Constipation, Diarrhea, Difficulty Swallowing, Odynophagia, Swelling of Abdomen, Heartburn (Eugenie Pal) GI Exam Vitals I&O Vital Signs Date Time Temp Pulse Resp B/P (MAP) Pulse Ox O2 Delivery O2 Flow Rate FiO2 07/12/17 08:22 07/12/17 07:13 18 07/12/17 07:12 79 18 148/83 (104) Room Air 100 07/12/17 06:39 81 16 161/83 (109) 99 Room Air 07/12/17 06:14 100 20 188/96 (126) 98 Room Air 07/12/17 05:16 96 18 177/88 (117) 99 Room Air 07/12/17 04:33 95 18 175/95 (121) 98 Room Air 07/12/17 03:10 98.6 102 15 165/88 (113) 98 I/O 07/11/17 07/11/17 07/11/17 07/12/17 07/12/17 07/12/17 07:00 15:00 23:00 07:00 15:00 23:00 Intake Total 2000 ml Output Total 900 ml Balance 1100 ml Intake IV Total 2000 ml Output Urine Total 900 ml Imaging Last Impressions Abdomen/Pelvis CT 07/12/17428 Signed Impressions: Service Date/Time: Wednesday, July 12, 2017 04:54 - CONCLUSION: 1. Cirrhosis. 2. Splenomegaly. 3. No acute abnormality Craig Camilo Jr., MD Chest X-Ray 07/12/17312 Signed Impressions: Service Date/Time: Wednesday, July 12, 2017 03:19 - CONCLUSION: 1. Mild cardiomegaly. Craig Camilo Jr., MD Laboratory Test 07/12/17 03:30 07/12/17 03:40 07/12/17 03:41 07/12/17 05:13 Blood Gas Puncture Site R ARM Blood Gas Patient Temperature 98.6 Venous Blood pH 7.36 Venous Blood Partial Pressure CO2 38 mmHg Venous Blood Partial Pressure O2 36 mmHg Venous Blood HCO3 21 mmol/L Venous Blood Oxygen Saturation 52 % Venous Blood Oxygen Content 9.2 Vol % Venous Blood Base Excess -3.6 mmol/L Blood Gas Inspired Oxygen 21 % Blood Urea Nitrogen 8 MG/DL Creatinine 1.10 MG/DL Random Glucose 284 MG/DL Total Protein 7.5 GM/DL Albumin 3.2 GM/DL Calcium Level 8.5 MG/DL Alkaline Phosphatase 120 U/L Aspartate Amino Transf (AST/SGOT) 73 U/L Alanine Aminotransferase (ALT/SGPT) 81 U/L Total Bilirubin 0.8 MG/DL Sodium Level 137 MEQ/L Potassium Level 3.2 MEQ/L Chloride Level 106 MEQ/L Carbon Dioxide Level 20.5 MEQ/L Anion Gap 11 MEQ/L Estimat Glomerular Filtration Rate 69 ML/MIN Lactic Acid Level 2.1 mmol/L Magnesium Level 1.5 MG/DL Troponin I LESS THAN 0.02 NG/ML Lipase 431 U/L B-Hydroxybutyrate 0.13 MMOL/L White Blood Count 3.3 TH/MM3 Red Blood Count 4.48 MIL/MM3 Hemoglobin 12.2 GM/DL Hematocrit 38.5 % Mean Corpuscular Volume 86.0 FL Mean Corpuscular Hemoglobin 27.2 PG Mean Corpuscular Hemoglobin Concent 31.6 % Red Cell Distribution Width 16.0 % Platelet Count 55 TH/MM3 Mean Platelet Volume 9.3 FL Neutrophils (%) (Auto) 72.3 % Lymphocytes (%) (Auto) 16.0 % Monocytes (%) (Auto) 10.2 % Eosinophils (%) (Auto) 0.9 % Basophils (%) (Auto) 0.6 % Neutrophils # (Auto) 2.5 TH/MM3 Lymphocytes # (Auto) 0.5 TH/MM3 Monocytes # (Auto) 0.3 TH/MM3 Eosinophils # (Auto) 0.0 TH/MM3 Basophils # (Auto) 0.0 TH/MM3 CBC Comment AUTO DIFF Differential Comment AUTO DIFF CONFIRMED Platelet Estimate LOW Platelet Morphology Comment NORMAL Prothrombin Time 11.3 SEC Prothromb Time International Ratio 1.1 RATIO Activated Partial Thromboplast Time 25.7 SEC Urine Color YELLOW Urine Turbidity CLEAR Urine pH 6.0 Urine Specific [place] 1.018 Urine Protein 30 mg/dL Urine Glucose (UA) 500 mg/dL Urine Ketones NEG mg/dL Urine Occult Blood TRACE Urine Nitrite NEG Urine Bilirubin NEG Urine Leukocyte Esterase NEG Urine RBC 0-3 /hpf Urine Squamous Epithelial Cells 0-5 /hpf Microscopic Urinalysis Comment CULT NOT INDICATED Date/Time Source Procedure Growth Status 07/12/17 03:41 Nasal Washing Influenza Types A,B Antigen (JL) - Final NEGATIVE FOR FLU A AND B ANTIGEN.... Complete Physical Examination HEENT: Normocephalic; atraumatic CHEST: Even/unlabored CARDIAC: RRR ABDOMEN: Distended, soft, nontender, bowel sounds active x 4 EXTREMITIES: BLE edema SKIN: Normal; no rash; no jaundice. GUNNER'S MATE G: No focal deficits; alert and oriented times three. (Eugenie Pal) Assessment and Plan Plan Assessment: - Coffee ground emesis for the past five days with streaks of BRB. Denies sick contacts, fever, chills, abdominal pain changes in BM. CT abdomen/pelvis with IV contrast (07/12) --> Cirrhosis, splenomegaly. No acute abnormalities. H/H currently 12.2/38.5. - Cirrhosis- labs consistent- elevated LFTs, thrombocytopenia. Pt denies any ETOH any 13 years. Denies diagnosis of cirrhosis in the past. Plan: EGD today Keep pt NPO Obtain consents Protonix Monitor H/H Transfuse as needed Supportive care Further recommendations to follow based on results of above Pt has been seen and examined by myself and Dr. Garcia and this note is written on his behalf (Eugenie Pal) Physician Comments Seen and examined with SOPHIA, egd planned for today. NPO with ivf. Monitor labs. Thank you (Elzbieta Garcia MD) Eugenie Pal Jul 12, 2017 09:24 Elzbieta Garcia MD Jul 12, 2017 13:33
--- NOTE | 2017-07-12 09:38 | EKG ---
Date Performed: 07/12/2017 Time Performed: 04:21:46 PTAGE: 57 years EKG: Sinus rhythm NORMAL ECG PREVIOUS TRACING : 02/16/2017 19.24 DOCTOR: Joshua Newman Interpretating Date/Time 07/12/2017 09:38:24
--- NOTE | 2017-07-12 12:30 | HHI.HP ---
[facility] Primary [facility] Physician No Primary Care Physician Admission Diagnosis abdominal pain, vomiting, hypokalemia, cirrhosis Diagnoses: (1) Abdominal pain Diagnosis: Principal (2) Nausea & vomiting Diagnosis: Principal (3) Coffee ground emesis Diagnosis: Principal Chief Complaint: Abdominal pain with nausea vomiting Travel History International Travel<30 Days: No Contact w/Intl Traveler <30 Da: No Traveled to Known Affected Are: No History of Present Illness Written by Kishor Desai, acting as scribe for Dr. Martínez on 07/12/17 at 12: 12. 57 year-old male with known history of hypertension, diabetes who presented to the hospital because of intractable nausea, vomiting, coffee- ground emesis. Patient states that his abdominal pain and nausea, vomiting started approximately 5 days ago after he ate clam chowder from a can. 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 Patient states that he has not been able to eat or drink anything over the last 5 days. He states anytime he tries to drink or eat small bites of food approximately 10 minutes later he will vomit. He indicates that he has noticed vomitus with bright red blood tinge as well as coffee-ground emesis. The patient came to emergency department for evaluation. Workup indicates some mild hypokalemia, mild elevated lactic acid level and mild elevated lipase level. Because the patient was still nauseous and unable tolerate anything by mouth with coffee-ground emesis it was recommended by the ER physician that the patient be observed in the hospital for further recommendations. Upon evaluating the patient and review medical records, patient's story is not always consistent between multiple caregivers. However, patient was sitting at bedside relatively comfortable. There is no episodes of any retching or nausea , vomiting while evaluating the patient. Patient is requesting ice chips because of his mouth being dry. Patient does have diabetes and he states that he checks his blood sugar on a regular basis. However he ran out of test strips 2 days ago. He manages diabetes on his own with Levemir and Humalog insulin. He indicates that his blood glucose levels have been running anywhere from the high 200s to unable to read over the last 5 days. Patient denies any fever, chills, diarrhea. Last bowel movement was 2 days ago which was light brown in coloration. Patient denies any melena or hematochezia Review of Systems Gastrointestinal: COMPLAINS OF: Abdominal pain, Nausea, Vomiting Except as stated in HPI: all other systems reviewed are Neg Past Family Social History Past Medical History Diabetes Mellitus- insulin dependent Diabetic neuropathy Hypertension Gastroesophageal reflux History of tobacco use Past Surgical History Melissa fundoplication Right leg surgery for infection Left wrist laceration repair Lung surgery for infection Reported Medications Reported Meds & Active Scripts Active APAP Extra Strength (Acetaminophen) 500 Mg Tab 1,000 Mg PO Q6H PRN Furosemide 20 Mg Tab 20 Mg PO DAILY Levemir Inj (Insulin Detemir) 1,000 unit/ 10 ML Vial 10 Units SQ HS 30 Days Do not mix with any other Insulin. Humalog Inj (Insulin Human Lispro) 1,000 Unit/10 Ml Vial 2-12 Units SQ ACHS 30 Days Max dose at bedtime:( )units; sugars < 70,(0)units; sugars 150-199,(2)units; sugars 200-249,(4)units; sugars 250-299,(7)units; sugars 300-349,(10)units; sugars more than 349,(12)units. Reported Nexium (Esomeprazole DR) 40 Mg Capdr 40 Mg PO BID Allergies: Coded Allergies: Sulfa (Sulfonamide Antibiotics) (Verified Allergy, Severe, 07/13/17) difficulty breathing penicillin G (Verified Allergy, Severe, 07/13/17) ANAPHYLACTIC REACTION diphenhydramine (Verified Allergy, Unknown, 07/13/17) vancomycin (Verified Allergy, Unknown, 07/13/17) Family History Reviewed and significant for mother with diabetes, father at age 87 from myocardial infarction. Patient states that there is alcohol abuse to his father side of the family. Social History Patient states he quit smoking 27 years ago, prior to that he smoked 2 pack of service a day since he was 14 years old. Patient states that he quit drinking alcohol 7 years ago at that time he states he is only drinking 3-4 beers a day and self-medicating for his diabetic neuropathy. Patient denies any illicit drugs Physical Exam Vital Signs Vital Signs Date Time Temp Pulse Resp B/P (MAP) Pulse Ox O2 Delivery O2 Flow Rate FiO2 07/12/17 09:50 160/92 (114) 07/12/17 08:50 97.2 88 20 161/90 (113) 98 07/12/17 08:22 07/12/17 07:13 18 07/12/17 07:12 79 18 148/83 (104) Room Air 100 07/12/17 06:39 81 16 161/83 (109) 99 Room Air 07/12/17 06:14 100 20 188/96 (126) 98 Room Air 07/12/17 05:16 96 18 177/88 (117) 99 Room Air 07/12/17 04:33 95 18 175/95 (121) 98 Room Air 07/12/17 03:10 98.6 102 15 165/88 (113) 98 Physical Exam GENERAL: Well-developed, well-nourished, in no acute distress. alert and orientated HEENT: Head is normocephalic without any lesions or masses noted. Facial features are symmetric. Eyes: Pupils equal round reactive to light. Extraocular muscles are intact. Conjunctivae were clear. Oropharyngeal: Pharynx without any erythema edema. Tongue is midline without deviation. Buccal mucosa is moist without any masses or lesions NECK: Supple without any masses. Trachea midline no deviation. No JVD, no bruits are appreciated CARDIAC: Regular rhythm, regular rate. S1/S2 are heard. No murmurs gallops or rubs. LUNGS: Clear to auscultation bilaterally. No wheeze, rhonchi or rales. No use of accessory muscles on inspiration or expiration. ABDOMEN: Soft, mild tenderness noted epigastric region. Nondistended. Bowel sounds heard in all 4 quadrants. No organomegaly or masses. Negative rebound, negative guarding EXTREMITIES: No edema, pulses are equal bilaterally. No cyanosis or clubbing. Patient has obvious skin discoloration from mid shaikh down to ankles NEUROLOGY: Mood and affect appear appropriate. Cranial nerves II through XII grossly intact. Muscle strength 5/5 in upper and lower extremities bilaterally. Deep tendon reflexes are 2+ in upper and lower extremities bilaterally. Laboratory Laboratory Tests Test 07/12/17 03:30 07/12/17 03:40 07/12/17 03:41 07/12/17 05:13 Blood Gas Puncture Site R ARM Blood Gas Patient Temperature 98.6 Venous Blood pH 7.36 Venous Blood Partial Pressure CO2 38 Venous Blood Partial Pressure O2 36 Venous Blood HCO3 21 Venous Blood Oxygen Saturation 52 Venous Blood Oxygen Content 9.2 Venous Blood Base Excess -3.6 Blood Gas Inspired Oxygen 21 Blood Urea Nitrogen 8 Creatinine 1.10 Random Glucose 284 Total Protein 7.5 Albumin 3.2 Calcium Level 8.5 Alkaline Phosphatase 120 Aspartate Amino Transf (AST/SGOT) 73 Alanine Aminotransferase (ALT/SGPT) 81 Total Bilirubin 0.8 Sodium Level 137 Potassium Level 3.2 Chloride Level 106 Carbon Dioxide Level 20.5 Anion Gap 11 Estimat Glomerular Filtration Rate 69 Lactic Acid Level 2.1 Magnesium Level 1.5 Troponin I LESS THAN 0.02 Lipase 431 B-Hydroxybutyrate 0.13 White Blood Count 3.3 Red Blood Count 4.48 Hemoglobin 12.2 Hematocrit 38.5 Mean Corpuscular Volume 86.0 Mean Corpuscular Hemoglobin 27.2 Mean Corpuscular Hemoglobin Concent 31.6 Red Cell Distribution Width 16.0 Platelet Count 55 Mean Platelet Volume 9.3 Neutrophils (%) (Auto) 72.3 Lymphocytes (%) (Auto) 16.0 Monocytes (%) (Auto) 10.2 Eosinophils (%) (Auto) 0.9 Basophils (%) (Auto) 0.6 Neutrophils # (Auto) 2.5 Lymphocytes # (Auto) 0.5 Monocytes # (Auto) 0.3 Eosinophils # (Auto) 0.0 Basophils # (Auto) 0.0 CBC Comment AUTO DIFF Differential Comment AUTO DIFF CONFIRMED Platelet Estimate LOW Platelet Morphology Comment NORMAL Prothrombin Time 11.3 Prothromb Time International Ratio 1.1 Activated Partial Thromboplast Time 25.7 Urine Color YELLOW Urine Turbidity CLEAR Urine pH 6.0 Urine Specific [place] 1.018 Urine Protein 30 Urine Glucose (UA) 500 Urine Ketones NEG Urine Occult Blood TRACE Urine Nitrite NEG Urine Bilirubin NEG Urine Leukocyte Esterase NEG Urine RBC 0-3 Urine Squamous Epithelial Cells 0-5 Microscopic Urinalysis Comment CULT NOT INDICATED Test 07/12/17 10:55 Ammonia 38 Date/Time Source Procedure Growth Status 07/12/17 03:41 Nasal Washing Influenza Types A,B Antigen (JL) - Final NEGATIVE FOR FLU A AND B ANTIGEN.... Complete Result Diagram: 07/12/17 03407/12/17339 Imaging Last Impressions Abdomen/Pelvis CT 07/12/17 0513 Signed Impressions: Service Date/Time: Wednesday, July 12, 2017 04:54 - CONCLUSION: 1. Cirrhosis. 2. Splenomegaly. 3. No acute abnormality Craig Camilo Jr., MD Chest X-Ray 07/12/17312 Signed Impressions: Service Date/Time: Wednesday, July 12, 2017 03:19 - CONCLUSION: 1. Mild cardiomegaly. MD Janki Lake Jr. VTE Risk Assessment Janki VTE Risk Assessment: Mod/High Risk (score >= 2) VTE Pharm Contraindication: Active bleeding Caprini Risk Assessment Model Point Value = 1 Point Value = 2 Point Value = 3 Point Value = 5 Age 41-60 Minor surgery BMI > 25 kg/m2 Swollen legs Varicose veins or History of unexplained or recurrent spontaneous Oral contraceptives or hormone replacement Sepsis (< 1 month) Serious lung disease, including pneumonia (< 1 month) Abnormal pulmonary function Acute myocardial infarction Congestive heart failure (< 1 month) History of inflammatory bowel disease Medical patient at bed rest Age 61-74 Arthroscopic surgery Major open surgery (> 45 min) Laparoscopic surgery (> 45 min) Malignancy Confined to bed (> 72 hours) Immobilizing plaster cast Central venous access Age >= 75 History of VTE Family history of VTE Factor V Leiden Prothrombin [id number] Lupus anticoagulant Anticardiolipin antibodies Elevated serum homocysteine Heparin-induced thrombocytopenia Other congenital or acquired thrombophilia Stroke (< 1 month) Elective arthroplasty Hip, pelvis, or leg fracture Acute spinal cord injury (< 1 month) Prophylaxis Regimen Total Risk Factor Score Risk Level Prophylaxis Regimen 0-1 Low Early ambulation 2 Moderate Order ONE of the following: *Sequential Compression Device (SCD) *Heparin 5000 units SQ BID 3-4 Higher Order ONE of the following medications: *Heparin 5000 units SQ TID *Enoxaparin/Lovenox 40 mg SQ daily (WT < 150 kg, CrCl > 30 mL/min) *Enoxaparin/Lovenox 30 mg SQ daily (WT < 150 kg, CrCl > 10-29 mL/min) *Enoxaparin/Lovenox 30 mg SQ BID (WT < 150 kg, CrCl > 30 mL/min) AND/OR *Sequential Compression Device (SCD) 5 or more Highest Order ONE of the following medications: *Heparin 5000 units SQ TID (Preferred with Epidurals) *Enoxaparin/Lovenox 40 mg SQ daily (WT < 150 kg, CrCl > 30 mL/min) *Enoxaparin/Lovenox 30 mg SQ daily (WT < 150 kg, CrCl > 10-29 mL/min) *Enoxaparin/Lovenox 30 mg SQ BID (WT < 150 kg, CrCl > 30 mL/min) AND *Sequential Compression Device (SCD) Assessment and Plan Assessment and Plan Intractable nausea, vomiting, abdominal pain with hematemesis, coffee-ground emesis Gastroenterology was consulted, Patient underwent EGD was found to have gastritis/gastropathy, no active signs of bleeding Continue IV fluids Continue anti-emetic Pain control Continue Protonix Diet was advanced per GI and patient tolerated diet well Cirrhosis, seen on CT scan Further evidence of pancytopenia, elevated liver enzymes, elevated ammonia level, history of alcohol abuse No indication of any official workup GI following the patient, will l need outpatient follow-up Pancytopenia, chronic Likely secondary to cirrhosis, splenomegaly which was seen on CT scan Records indicate at least 5 months of chronicity Leukopenia appears to be stable Hemoglobin has mild improvement, Thrombocytopenia with mild worsening Diabetes Accu-Cheks with sliding scale insulin DVT prevention Sequential compression devices, avoid chemical prophylaxis secondary to GI bleed Discharge disposition Discharge home in stable condition Activity: Ad trini. Diet: Diabetic diet Medications per medication reconciliation Follow-up with primary medical doctor in one week, gastroenterology for 2 weeks Medical Decision Making Impression and Plan This note was transcribed by tracey [[email or web address]]. I, Dr. Ruth Ann Martínez personally performed the history, physical exam, and medical decision making; and confirmed the accuracy of the information in the transcribed note. performed at time of scribing, only signed now Authenticated by Dr. Ruth Ann Martínez on 07/12/17 at 13:57. Problem Qualifiers (1) Abdominal pain: Qualified Codes: R10.9 - Unspecified abdominal pain (2) Nausea & vomiting: Qualified Codes: R11.2 - Nausea with vomiting, unspecified Kishor Desai Jul 12, 2017 12:30 Ruth Ann Martínez MD Jul 12, 2017 13:57
--- NOTE | 2017-07-12 13:41 | GIPROC ---
[facility] [address] [place] [address], [id number] EGD PROCEDURE REPORT EXAM DATE: 07/12/2017 PATIENT NAME: Jarrett Wiess MR #: [id number] BIRTHDATE: 1960 ATTENDING: Elzbieta Garcia MD ORDER #: [id number] ME[employer] APPRENTICE: Ethan Holcomb and Jeniffer Rodriguez STATUS: inpatient INDICATIONS: The patient is a 57 yr old male here for an EGD due to dyspepsia and hematemesis PROCEDURE PERFORMED: EGD w/ biopsy MEDICATIONS: None and Per Anesthesia. TOPICAL ANESTHETIC: CONSENT: The patient understands the risks and benefits of the procedure and understands that these risks include, but are not limited to: sedation, allergic reaction, infection, perforation and/or bleeding. Alternative means of evaluation and treatment include, among others: physical exam, x-rays, and/or surgical intervention. The patient elects to proceed with this endoscopic procedure. medical equipment was checked for proper function. Hand hygiene and appropriate measures for infection prevention was taken. After the risks, benefits and alternatives of the procedure were thoroughly explained, Informed consent was verified, confirmed and timeout was successfully executed by the treatment team. The patient was anesthetized with topical anesthesia and the Pentax EG-[id number] endoscope was introduced through the mouth and advanced to the second portion of the duodenum. Retroflexed views revealed no abnormalities The gastroscope was then slowly withdrawn and removed. 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 The length of circumferential Soto's was 1cm ([place] C1) and the length of Maximal extent of Soto's was 2cm ([place] M2). There was no nodular mucosa noted in the Soto's segment. A biopsy was performed using cold forceps. Sample sent for histology. STOMACH: There was erythematous moderate gastritis in the gastric antrum. A biopsy was performed using cold forceps. Sample sent for histology. Moderate portal hypertensive gastropathy was found in the gastric fundus. DUODENUM: The duodenal mucosa appeared normal in the bulb and second portion of the duodenum. ADVERSE EVENTS: There were no complications. IMPRESSIONS: 1. 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 There was erythematous gastritis in the gastric antrum; biopsy was performed 3. Portal hypertensive gastropathy was found in the gastric fundus 4. Normal duodenal mucosa in the bulb and second portion of the duodenum 5. Retroflexed views revealed no abnormalities RECOMMENDATIONS: 1. Await biopsy results. Biopsy results will not be ready for 7-10 days. If you don't hear from us in two weeks, call our office for biopsy results. 2. Anti-reflux regimen 3. Continue PPI 4. Avoid NSAIDS PATIENT CONDITION: stable DISPOSITION: Inpatient REPEAT EXAM: Return 1 year EGD pending biopsy results Elzbieta Garcia MD eSigned: Elzbieta Garcia MD 07/12/2017 1:41 PM cc: PATIENT NAME: Jarrett Weiss MR#: [id number]
[2017-07-12] MEDS ORDERED: LISI10TA3 PO (16:08)
[2017-07-12] MEDS ORDERED: NEXI40CA PO (16:08)
[2017-07-12] MEDS ORDERED: ZOFR4TAB3 SL (16:09)
--- NOTE | 2017-07-12 16:09 | HHI.DCPOC ---
Discharge Care Plan Diagnosis: (1) Nausea & vomiting (2) Coffee ground emesis (3) Abdominal pain Goals to Promote Your Health * To prevent worsening of your condition and complications * To maintain your health at the optimal level Directions to Meet Your Goals Take your medications as prescribed Follow your dietary instruction Follow activity as directed Keep your appointments as scheduled Take your immunizations and boosters as scheduled If your symptoms worsen call your PCP, if no PCP go to Urgent Care Center or Emergency Room Smoking is Dangerous to Your Health. Avoid second hand smoke Call the 24-hour hour crisis hotline for domestic abuse at Kishor Desai Jul 12, 2017 16:09
[2017-07-12] MEDS ORDERED: LISINOPRIL 10 MG TAB PO SCH (16:15)
[2017-07-13] MEDS ORDERED: LEVEMIR SQ (08:13)
== END 2017-07-12 21:30 | disposition home or self-care (01) ==
LOC: PHED 02:55 → PHEDA 06:33 → PH3A 08:24
PROVIDERS: ADMIT Hospitalist; ATTEND Hospitalist
DX: K74.60 Unspecified cirrhosis of liver (principal); D61.818 Other pancytopenia; D69.6 Thrombocytopenia, unspecified; K92.0 Hematemesis; K29.70 Gastritis, unspecified, without bleeding; K22.70 Barrett's esophagus without dysplasia; K31.89 Other diseases of stomach and duodenum; K76.6 Portal hypertension; E11.65 Type 2 diabetes mellitus with hyperglycemia; E87.6 Hypokalemia; I11.0 Hypertensive heart disease with heart failure; I50.9 Heart failure, unspecified; J44.9 Chronic obstructive pulmonary disease, unspecified; K21.9 Gastro-esophageal reflux disease without esophagitis; Z79.4 Long term (current) use of insulin; R16.1 Splenomegaly, not elsewhere classified; Z87.891 Personal history of nicotine dependence
CPT/HCPCS: 00731; 43239; 71045; 74177; 80053; 81001; 82010; 82140; 82805; 82948; 83605; 83690; 83735; 84484; 85025; 85610; 85730; 87804; 88305; 88312; 93005; 96361; 96365; 96366; 96372; 96375; 96376; 99285; C9113; G0378; J1815; J2270; J2405; J3480; J7030; Q9967

== ENCOUNTER 2017-07-13 05:45 | Emergency (ER) | payer MEDICARE ==
[~2017-07-13] VITALS: Ht 175.3 cm; Wt 105.1 kg
[~2017-07-13 05:45] MED LIST changes: -FURO20TA PO; -HYDR-3133 PO; -INSU1MIS; -LEVO750T3 PO; +LISI10TA3 PO; -PREG25 PO; -SULF1TAB23 PO; +ZOFR4TAB3 SL
[2017-07-13 05:54] VITALS: BP 197/90; PULSE 76; RESP 12; TEMP 97.8; O2SAT 99
[2017-07-13 06:07] VITALS: RESP 18
--- NOTE | 2017-07-13 06:15 | PD ---
HPI Chief Complaint: Psychiatric Symptoms Time Seen by Provider: 06:11 Travel History International Travel<30 days: No Contact w/Intl Traveler<30days: No Traveled to known affect area: No History of Present Illness HPI 57-year-old male whom I admitted to the hospital yesterday, discharged today, back in the emergency department complaining of depression and suicidal ideation. The patient reports history of depression. When he was discharged today he had no place to go and round in the hospital until checking back in to be evaluated for his depression. He is denying any physical complaints. He did not consume any alcohol or illicit drugs today. PFSH Past Medical History Asthma: No Blood Disorders: No Heart Rhythm Problems: Yes Cancer: Yes (ESOPHAGEAL CANCER) Cardiovascular Problems: Yes High Cholesterol: No Chemotherapy: No Chest Pain: Yes Congestive Heart Failure: Yes COPD: Yes Diabetes: Yes Diminished Hearing: No Deep Vein Thrombosis: Yes Endocrine: Yes Gastrointestinal Disorders: Yes (GERD) GERD: Yes Genitourinary: No Hypertension: Yes Musculoskeletal: Yes Neurologic: No Psychiatric: No Reproductive: No Respiratory: Yes Immunizations Current: No Radiation Therapy: No Sleep Apnea: No Thyroid Disease: No ?: Not Past Surgical History Abdominal Surgery: Yes Other Surgery: Yes (VASCULAR SX TO R LEG) Social History Alcohol Use: No (RARELY) Tobacco Use: No (QUIT 25 + YRS) Substance Use: No Allergies-Medications (Allergen,Severity, Reaction): Coded Allergies: penicillin G (Verified Allergy, Severe, 07/13/17) ANAPHYLACTIC REACTION diphenhydramine (Verified Allergy, Unknown, 07/13/17) vancomycin (Verified Allergy, Unknown, 07/13/17) Reported Meds & Prescriptions Reported Meds & Active Scripts Active Zofran Odt (Ondansetron Odt) 4 Mg Tab 4 Mg SL Q6HR PRN Lisinopril 10 Mg Tab 10 Mg PO DAILY Nexium (Esomeprazole DR) 40 Mg Capdr 40 Mg PO BID APAP Extra Strength (Acetaminophen) 500 Mg Tab 1,000 Mg PO Q6H PRN Levemir Inj (Insulin Detemir) 1,000 unit/ 10 ML Vial 10 Units SQ HS 30 Days Do not mix with any other Insulin. Humalog Inj (Insulin Human Lispro) 1,000 Unit/10 Ml Vial 2-12 Units SQ ACHS 30 Days Max dose at bedtime:( )units; sugars < 70,(0)units; sugars 150-199,(2)units; sugars 200-249,(4)units; sugars 250-299,(7)units; sugars 300-349,(10)units; sugars more than 349,(12)units. Review of Systems Except as stated in HPI: all other systems reviewed are Neg Physical Exam Narrative GENERAL: Well-developed, well-nourished, comfortable, tearful, no apparent distress. SKIN: Focused skin assessment warm/dry. HEAD: Atraumatic. Normocephalic. EYES: Pupils equal and round. No scleral icterus. No injection or drainage. ENT: No nasal bleeding or discharge. Mucous membranes pink and moist. NECK: Trachea midline. No JVD. CARDIOVASCULAR: Regular rate and rhythm. No murmur appreciated. RESPIRATORY: No accessory muscle use. Clear to auscultation. Breath sounds equal bilaterally. GASTROINTESTINAL: Abdomen soft, non-tender, nondistended. MUSCULOSKELETAL: No obvious deformities. No clubbing. No cyanosis. No edema. NEUROLOGICAL: Awake and alert. No obvious cranial nerve deficits. Motor grossly within normal limits. Normal speech. PSYCHIATRIC: Flat affect. Poor eye contact. Data Data Last Documented VS Vital Signs Date Time Temp Pulse Resp B/P (MAP) Pulse Ox O2 Delivery O2 Flow Rate FiO2 07/13/17 06:07 18 07/13/17 05:54 97.8 76 197/90 (125) 99 MDM Medical Decision Making Medical Screen Exam Complete: Yes Emergency Medical Condition: Yes Differential Diagnosis Depression, suicidal, malingering Narrative Course Patient was just discharged from the hospital and has not left the premises. He has not consumed any drugs or alcohol. He is very tearful and states he is depressed and feels suicidal. He is medically cleared for psychiatric evaluation and disposition by them. Diagnosis Primary Impression: Depression Qualified Codes: F32.9 - Major depressive disorder, single episode, unspecified Kendrick Hatfield MD Jul 13, 2017 06:15
--- NOTE | 2017-07-13 07:52 | PD ---
HPI Chief Complaint: Psychiatric Symptoms Time Seen by Provider: 07:41 Travel History International Travel<30 days: No Contact w/Intl Traveler<30days: No Traveled to known affect area: No History of Present Illness HPI This is a 57-year-old male who arrived from [place] emergency department under [place] act. According to the initial report the patient was "admitted to the hospital yesterday, discharged today, back in the emergency department complaining of depression and suicidal ideation. The patient reports history of depression. When he was discharged today he had no place to go and round in the hospital until checking back in to be evaluated for his depression. He is denying any physical complaints. He did not consume any alcohol or illicit drugs today." According to the [place] act report the patient "states he has history of depression and states he feels depressed and suicidal and thinks he needs to be back on meds for depression." On my examination the patient denies suicidal or homicidal ideations. He says maybe he was misunderstood and just that he wanted to be evaluated for feeling depressed. He recently lost his apartment and became homeless within hours. Denies visual or auditory hallucinations. Denies illicit drug use, tobacco use. Reports occasional alcohol use. Symptoms Aggravated by recent homelessness. Relieving factors may be medications for his depression. Unknown duration. Allergies to diphenhydramine, penicillin, vancomycin. No primary care provider. Has no other medical complaints. No other modifying factors or associated signs and symptoms. PFSH Past Medical History Asthma: No Blood Disorders: No Heart Rhythm Problems: Yes Cancer: Yes (ESOPHAGEAL CANCER) Cardiovascular Problems: Yes High Cholesterol: No Chemotherapy: No Chest Pain: Yes Congestive Heart Failure: Yes COPD: Yes Diabetes: Yes Patient Takes Glucophage: No Diminished Hearing: No Deep Vein Thrombosis: Yes Endocrine: Yes Gastrointestinal Disorders: Yes (GERD) GERD: Yes Genitourinary: No Hypertension: Yes Musculoskeletal: Yes Neurologic: No Psychiatric: Yes (Depression) Reproductive: No Respiratory: Yes (COPD) Immunizations Current: No Radiation Therapy: No Sleep Apnea: No Thyroid Disease: No Influenza Vaccination: No ?: Not Past Surgical History Abdominal Surgery: Yes Other Surgery: Yes (VASCULAR SX TO R LEG) Social History Alcohol Use: No (RARELY) Tobacco Use: No (QUIT 25 + YRS) Substance Use: No Allergies-Medications (Allergen,Severity, Reaction): Coded Allergies: penicillin G (Verified Allergy, Severe, 07/13/17) ANAPHYLACTIC REACTION diphenhydramine (Verified Allergy, Unknown, 07/13/17) vancomycin (Verified Allergy, Unknown, 07/13/17) Reported Meds & Prescriptions Reported Meds & Active Scripts Active Zofran Odt (Ondansetron Odt) 4 Mg Tab 4 Mg SL Q6HR PRN Lisinopril 10 Mg Tab 10 Mg PO DAILY Nexium (Esomeprazole DR) 40 Mg Capdr 40 Mg PO BID APAP Extra Strength (Acetaminophen) 500 Mg Tab 1,000 Mg PO Q6H PRN Levemir Inj (Insulin Detemir) 1,000 unit/ 10 ML Vial 10 Units SQ HS 30 Days Do not mix with any other Insulin. Humalog Inj (Insulin Human Lispro) 1,000 Unit/10 Ml Vial 2-12 Units SQ ACHS 30 Days Max dose at bedtime:( )units; sugars < 70,(0)units; sugars 150-199,(2)units; sugars 200-249,(4)units; sugars 250-299,(7)units; sugars 300-349,(10)units; sugars more than 349,(12)units. Review of Systems Except as stated in HPI: all other systems reviewed are Neg Physical Exam Narrative GENERAL: Well-nourished, well-developed male patient, in no acute distress SKIN: Warm and dry. HEAD: Atraumatic. Normocephalic. EYES: Pupils equal and round. ENT: Mucosa pink and moist. NECK: Supple. Trachea midline. CARDIOVASCULAR: Regular rate and rhythm. No murmur appreciated. RESPIRATORY: No accessory muscle use. Clear to auscultation. Breath sounds equal bilaterally. GASTROINTESTINAL: Abdomen soft, non-tender, nondistended. Hepatic and splenic margins not palpable. Bowel sounds are active 4 quadrants. MUSCULOSKELETAL: No obvious deformities. No clubbing. No cyanosis. No edema. NEUROLOGICAL: Awake and alert. Oriented 3. No obvious cranial nerve deficits. Motor grossly within normal limits. Normal speech. Moves all extremities. 5/5 strength to all extremities. PSYCHIATRIC: No delusional thought processes. No hallucinations. Data Data Last Documented VS Vital Signs Date Time Temp Pulse Resp B/P (MAP) Pulse Ox O2 Delivery O2 Flow Rate FiO2 07/13/17 06:07 18 07/13/17 05:54 97.8 76 197/90 (125) 99 Orders Orders Psych Screen (07/13/17 07:42) MDM Medical Decision Making Medical Screen Exam Complete: Yes Emergency Medical Condition: Yes Medical Record Reviewed: Yes Differential Diagnosis Suicidal ideation, depression, medical clearance for psychiatric admission Narrative Course Patient presents under a [place] act. Physical examination and vital signs are essentially unremarkable. Patient has no medical complaints to report. Psych screen has been ordered. If the laboratory results are unremarkable, the patient will be medically cleared for psychiatric evaluation and disposition. Diagnosis Primary Impression: Medical clearance for psychiatric admission Condition: Stable Rashmi Bernardo Jul 13, 2017 07:52
[2017-07-13 07:57] VITALS: BP 194/91; PULSE 88; RESP 18; TEMP 98.8; O2SAT 99
[2017-07-13] MEDS ORDERED: LEVEMIR SQ (08:13)
[2017-07-13 11:17] VITALS: BP 166/90; PULSE 74; RESP 18; O2SAT 99
[2017-07-13 12:03] VITALS: BP 149/82; PULSE 95; RESP 18; TEMP 98.7; O2SAT 100
--- NOTE | 2017-07-13 15:20 | PD ---
History of Present Illness Chief Complaint: Psychiatric Symptoms Time Seen by Provider: 14:40 Travel History International Travel<30 Days: No Contact w/Intl Traveler<30days: No Known affected area: No Legal Status Legal Status: [facility] Act [place] Act Signed By: Dr Hatfield [facility]PO History of Present Illness: History of Present Illness HPI 57-year-old male with history of alcohol dependence and reported hx of depression who presents to [facility] under a [place] act initiated by Dr. Hatfield at [facility]. As per Ed documentation " was admitted to hospital yesterday, discharged today, back in the emergency department complaining of depression and suicidal ideation." He denied any suicidality to Dr. Tomlinson who evaluated him in Ed and " says that he was misunderstood and just wanted to be evaluated for feeling depressed". Patient was monitored in [facility] and presented no behavioral concerns and no suicidality. Patient is seen with Melania SPEAR. He is alert, cooperative. His speech is clear, logical, goal-directed. There is no evidence of any psychosis, no elen or hypomania. No significant objective symptom of depression. He at this point is requesting to be discharge and once return back to [facility]. He acknowledges that he made some poor choices and needs to continue to work on his sobriety.. The patient is not suicidal, not homicidal. In terms of psychiatric history he reports that he was diagnosed with depression probably 3 years ago. He has not been in treatment for the past try half years [facility] Past Medical History Asthma: No Blood Disorders: No Heart Rhythm Problems: Yes Cancer: Yes (ESOPHAGEAL CANCER) Cardiovascular Problems: Yes High Cholesterol: No Chemotherapy: No Chest Pain: Yes Congestive Heart Failure: Yes COPD: Yes Diabetes: Yes Patient Takes Glucophage: No Diminished Hearing: No Deep Vein Thrombosis: Yes Endocrine: Yes Gastrointestinal Disorders: Yes (GERD) GERD: Yes Genitourinary: No Hypertension: Yes Musculoskeletal: Yes Neurologic: No Psychiatric: Yes (Depression) Reproductive: No Respiratory: Yes (COPD) Immunizations Current: No Radiation Therapy: No Sleep Apnea: No Thyroid Disease: No Influenza Vaccination: No ?: Not Past Surgical History Abdominal Surgery: Yes Other Surgery: Yes (VASCULAR SX TO R LEG) Psychiatric History Psychiatric History Hx Psychiatric Treatment: [place] approximately 3 years ago and consisted of outpatient treatment only. History of Inpatient Treatment: No Guns or firearms in home: No Social History Single, never . Currently on Social Security disability. Currently homeless. Hx Alcohol Use: No (RARELY) Hx Tobacco Use: No (QUIT 25 + YRS) Hx Substance Use: Yes Substance Use Type: Alcohol Other Substances Used: Alcohol-daily Hx of Substance Use Treatment: No Family Psychiatric History Negative Allergies-Medications (Allergen,Severity, Reaction): Coded Allergies: Sulfa (Sulfonamide Antibiotics) (Verified Allergy, Severe, 07/13/17) difficulty breathing penicillin G (Verified Allergy, Severe, 07/13/17) ANAPHYLACTIC REACTION diphenhydramine (Verified Allergy, Unknown, 07/13/17) vancomycin (Verified Allergy, Unknown, 07/13/17) Reported Meds & Prescriptions Reported Meds & Active Scripts Active Zofran Odt (Ondansetron Odt) 4 Mg Tab 4 Mg SL Q6HR PRN Lisinopril 10 Mg Tab 10 Mg PO DAILY Nexium (Esomeprazole DR) 40 Mg Capdr 40 Mg PO BID APAP Extra Strength (Acetaminophen) 500 Mg Tab 1,000 Mg PO Q6H PRN Humalog Inj (Insulin Human Lispro) 1,000 Unit/10 Ml Vial 2-12 Units SQ ACHS 30 Days Max dose at bedtime:( )units; sugars < 70,(0)units; sugars 150-199,(2)units; sugars 200-249,(4)units; sugars 250-299,(7)units; sugars 300-349,(10)units; sugars more than 349,(12)units. Reported Levemir Inj (Insulin Detemir) 1,000 unit/ 10 ML Vial 25 Units SQ BID Do not mix with any other Insulin. Review of Systems Gastrointestinal: COMPLAINS OF: Abdominal pain Except as stated in HPI: all other systems reviewed are Neg Mental Status Examination Appearance: Appropriate Consciousness: Alert Orientation: x4 Motor Activity: Normal gait Speech: Unremarkable Language: Adequate Fund of Knowledge: Adequate Attention and Concentration: Adequate Memory: Unremarkable Mood: Appropriate Affect: Appropriate (in hospital attire) Thought Process & Associations: Intact Thought Content: Appropriate Hallucination Type: None Delusion Type: None Suicidal Ideation: No Suicidal Plan: No Suicidal Intention: No Homicidal Ideation: No Homicidal Plan: No Homicidal Intention: No Insight: Fair Judgment: Adequate MDM Medical Decision Making Medical Record Reviewed: Yes Assessment/Plan 57-year-old male with history of alcohol dependence and reported hx of depression who presents to [facility] under a [place] act initiated by Dr. Hatfield at [facility]. As per Ed documentation " was admitted to hospital yesterday, discharged today, back in the emergency department complaining of depression and suicidal ideation." He denied any suicidality to Dr. Tomlinson who evaluated him in Ed and " says that he was misunderstood and just wanted to be evaluated for feeling depressed". Patient was monitored in secure environment and he presented no behavioral concerns and no suicidality. He is future oriented. Main issue seems to be homelessness. The patient today is expressing his desire to once again returned to [place] [facility] [place] [facility]. He acknowledges the role of his alcohol and is expressing his intent on continuing to work on his sobriety. He will be referred to area psychiatrist. There is no evidence of any unstable mental illness as defined under the [place] act. The [place]ca act will be lifted. Patient is psychiatrically clear for discharge from ED. Orders Orders Psych Screen (07/13/17 07:42) Drug Screen, Random Urine (07/13/17 11:44) Diet Regular Basic (07/13/17 Lunch) Diet Regular Basic (07/13/17 Dinner) Results Vital Signs Date Time Temp Pulse Resp B/P (MAP) Pulse Ox O2 Delivery O2 Flow Rate FiO2 07/13/17 12:03 98.7 95 18 149/82 (104) 100 Room Air 07/13/17 11:17 74 18 166/90 (115) 99 Room Air 07/13/17 07:57 98.8 88 18 194/91 (125) 99 Room Air 07/13/17 06:07 18 07/13/17 05:54 97.8 76 12 197/90 (125) 99 Diagnosis Primary Impression: Medical clearance for psychiatric admission Additional Impression: Alcohol dependence Psychiatrically Cleared: Yes Referrals: [facility] (Out patient) call for appointment Medication Management Departure Forms: Tests/Procedures Patient Instructions: General Instructions, Abuse of Alcohol (ED) Med/ Other Pt Specific Info: No Meds Exist/No RX given Disposition: 01 DISCHARGE HOME Condition: Stable Problem Qualifiers Additional Impression: Alcohol dependence Qualified Codes: F10.21 - Alcohol dependence, in remission Kenia Baeza Jul 13, 2017 15:20
== END 2017-07-13 15:37 | disposition home or self-care (01) ==
LOC: PHED 05:45 → NEPJ 15:37
DX: F10.20 Alcohol dependence, uncomplicated (principal); R45.851 Suicidal ideations; I11.0 Hypertensive heart disease with heart failure; I50.9 Heart failure, unspecified; J44.9 Chronic obstructive pulmonary disease, unspecified; E11.9 Type 2 diabetes mellitus without complications; K21.9 Gastro-esophageal reflux disease without esophagitis; F32.9 Major depressive disorder, single episode, unspecified; Z86.718 Personal history of other venous thrombosis and embolism
CPT/HCPCS: 99281; 99284